=== PATIENT | male | born 1955 | race Two or more races ===

== ENCOUNTER → 2017-10-11 | Outpatient (CLI) | payer BC ==
[~2017-10-11] MED LIST: IOHEXOL 180 MG/ML 10 ML VIAL.; LIDOCAINE 1% PF 2 ML VIAL.; methylPREDNISolone ACETATE 40 MG/ML VIAL.; methylPREDNISolone ACETATE 80 MG/ML VIAL.
== END | disposition home or self-care (01) ==
LOC: PNCL 08:24
DX: M51.16 Intervertebral disc disorders with radiculopathy, lumbar region (principal); M48.061 Spinal stenosis, lumbar region without neurogenic claudication; I10 Essential (primary) hypertension; E11.9 Type 2 diabetes mellitus without complications; Z90.49 Acquired absence of other specified parts of digestive tract; E78.00 Pure hypercholesterolemia, unspecified; Z79.82 Long term (current) use of aspirin; Z79.899 Other long term (current) drug therapy; Z79.84 Long term (current) use of oral hypoglycemic drugs; Z79.4 Long term (current) use of insulin; F17.210 Nicotine dependence, cigarettes, uncomplicated; Z87.19 Personal history of other diseases of the digestive system
CPT/HCPCS: 62323; J1030; J1040; Q9965

== ENCOUNTER → 2017-10-30 | Outpatient (CLI) | payer BC ==
[2016-03-16 13:00] VITALS: BP 107/77
[~2017-10-30] MED LIST changes: +ASPI-630 PO; +ATOR20TA58 PO; +EXEN2PEN SQ; +GEMF600T PO; +INSU100V5 IJ; -IOHEXOL 180 MG/ML 10 ML VIAL.; +IOHEXOL 180 MG/ML 10 ML VIAL. ONE; -LIDOCAINE 1% PF 2 ML VIAL.; +LIDOCAINE 2% PF 2ML VIAL. ONE; +LISI-334 PO; +METF10003 PO; +MULT-18 PO; +OMEG1CAP6 PO; +OMEP20CA9 PO; +SAXA1TBM3 PO; -methylPREDNISolone ACETATE 40 MG/ML VIAL.; +methylPREDNISolone ACETATE 40 MG/ML VIAL. ONE; -methylPREDNISolone ACETATE 80 MG/ML VIAL.; +methylPREDNISolone ACETATE 80 MG/ML VIAL. ONE
--- NOTE | 2017-10-31 00:29 | PAIN ---
DATE OF SERVICE: 10/30/2017 PROGRESS NOTE FOR PAIN CLINIC DIAGNOSES: Lumbar radiculopathy with lumbar degenerative disk disease, lumbar spinal stenosis. HISTORY OF PRESENT ILLNESS: The patient is a 62-year-old male who returns for followup status post lumbar epidural steroid injection x 1. The patient reports about 50% improvement, especially for the first 3 to 4 days, was doing much better, now about 50% overall, with increasing distances walking and doing household activities with much greater ease and comfort, sleeping well at night. The patient reports now the pain is returning in the low back, a little bit more on the left leg, but is intermittent in the left leg, rates it as a 10 on a scale of 10 at its worst, 7 on average, 5 at its least and is a 5 today. The patient reports it is aching, shooting, sometimes sharp and stinging, unbearable at times, mostly with weightbearing, standing and walking. The patient reports it is okay with sitting or lying down, it does not awaken him from sleep. PHYSICAL EXAMINATION: VITAL SIGNS: Today, the patient's blood pressure is 126/78, pulse 99, respirations 20, temperature 98.4 degrees Fahrenheit, weight is 269 pounds. GENERAL: The patient is awake, alert, oriented, appropriate, very pleasant demeanor. HEENT: Head shows normocephalic, atraumatic. Extraocular movements are intact, symmetrical. Oral cavity: Mucous membranes moist and pink. Dentition is intact. NECK: Shows anterior throat supple without palpable lymphadenopathy noted. Swallow reflex symmetrical. CHEST: Shows normal with inspection. Breath sounds clear to auscultation bilaterally. HEART: Shows S1, S2 clear. No murmurs auscultated. ABDOMEN: Soft, nontender, nondistended. No palpable organomegaly. There is no rebound or guarding demonstrated. BACK: Shows spine grossly in the midline, slight flattening of lumbar lordotic curvature. Lumbar paraspinous muscle shows symmetrical on inspection; on palpation shows some moderate tenderness, but only diffusely without abnormalities. EXTREMITIES: Lower extremities show deep tendon reflexes at 2+ in the patellar, 1+ tendo-calcaneus tendons. Motor exam is approximately 4 on a scale of 5 left and 5/5 on the right. . Peripheral pulses are 1+ posterior tibia. No peripheral edema is noted bilaterally. Options were discussed with the patient. The patient's old chart was reviewed as his current medication regimen updated. Current review of systems updated today as well and we will proceed with a second in series of lumbar epidural steroid injection today with fluoroscopic guidance. Risks were again discussed including, but not limited to bleeding, infection, possibility of epidural hematoma, subsequent neurologic compromise, dural puncture, headaches, spinal cord and/or nerve damage, side effects to steroid medication and poor results regarding pain control. The patient understands and wished to proceed. The patient to return to clinic in approximately 2 weeks for followup, was counseled on return appointment, activity level and side effects to be aware of. DIAGNOSES: Lumbar radiculopathy with lumbar degenerative disk disease, lumbar spinal stenosis. PROCEDURE: Lumbar epidural steroid injection, translaminar approach at L4-L5 level using C-arm fluoroscopic guidance under sterile prep and drape using local anesthetic. MEDICATION INJECTED: A total of 120 mg Depo-Medrol plus 10 mL of preservative-free normal saline and 2 mL of Isovue for contrast. CONDITION AT DISCHARGE: Stable. The patient tolerated procedure well, had no complications. DAVIDSON BURR MD DR: TAMARA/skylar JOB#: [id number] / [id number]
== END | disposition home or self-care (01) ==
LOC: PNCL 08:27
PROVIDERS: ATTEND Anesthesiology
DX: M51.16 Intervertebral disc disorders with radiculopathy, lumbar region (principal); M48.061 Spinal stenosis, lumbar region without neurogenic claudication; E78.00 Pure hypercholesterolemia, unspecified; I10 Essential (primary) hypertension; E11.9 Type 2 diabetes mellitus without complications; Z79.82 Long term (current) use of aspirin; Z79.899 Other long term (current) drug therapy; Z79.84 Long term (current) use of oral hypoglycemic drugs; Z79.4 Long term (current) use of insulin; Z90.49 Acquired absence of other specified parts of digestive tract; F17.210 Nicotine dependence, cigarettes, uncomplicated; Z87.19 Personal history of other diseases of the digestive system
CPT/HCPCS: 62323; J1030; J1040; J2001; Q9965

== ENCOUNTER → 2017-11-19 | Outpatient (CLI) | payer BC ==
[2016-03-16 13:00] VITALS: BP 107/77
[~2017-11-19] MED LIST changes: -METF10003 PO; +METF10007 PO
--- NOTE | 2017-11-19 20:03 | PAIN ---
DATE OF SERVICE: 11/19/2017 DIAGNOSIS: Lumbar radiculopathy with lumbar spinal stenosis and lumbar degenerative disk disease. HISTORY OF PRESENT ILLNESS: The patient is a 62-year-old male who returns for followup status post lumbar epidural steroid injections x 2. The patient reports good results, but only lasting about a week or so, about 70% improvement and pain returning in the low back and more on the left than the right lower extremity, mostly in the posterior gluteus, posterior thigh, lateral thigh, anterior thigh. The patient reports it is aching and sharp, sometimes dull, can be shooting and burning as well in the low back, worse with walking, standing and changing positions, better with lying down, does not awaken him from sleep at night and worse with activity. The patient reports it is an 8 on a scale of 10 at its worst, 8 on average, 6 at its least and is an 8 today. The patient reports no new motor or sensory deficits, no new bowel or bladder incontinence or other complaints. He has increased his activity with greater ease and comfort for the first week, but then the pain returns essentially to its baseline. PHYSICAL EXAMINATION: VITAL SIGNS: The patient's blood pressure 125/74, pulse 101, respirations 18, temperature 98.0 degrees Fahrenheit, height is 5 feet 11 inches, weight is 267 pounds. GENERAL: The patient is awake, alert, oriented, appropriate, very pleasant demeanor. HEENT: Head shows normocephalic, atraumatic. Extraocular movements are intact and symmetrical. Oral cavity: Mucous membranes are moist and pink. Dentition is intact. NECK: Shows anterior throat supple without palpable lymphadenopathy noted. Swallow reflex is symmetrical. CHEST: Shows normal on inspection. Breath sounds are clear to auscultation bilaterally. HEART: Shows S1, S2 clear. No murmurs auscultated. ABDOMEN: Soft, nontender, nondistended. No palpable organomegaly is noted. No rebound or guarding demonstrated. BACK: Shows spine grossly in the midline. Normal appearing thoracic kyphosis and some minor flattening of lumbar lordotic curvature. Lumbar paraspinous muscle shows symmetrical on inspection, on palpation has some mild tenderness, but only diffusely without radiation. EXTREMITIES: The patient's lower extremities show deep tendon reflexes at 2+ in the patellar, 1+ tendo calcaneus tendons. Motor exam is approximately 4 on a scale 5 with left dorsiflexion and extension and 5/5 on the right. Peripheral pulses are 1+ posterior tibia. No peripheral edema is noted. Options were discussed with the patient. The patient's old chart was reviewed as his current medication regimen updated. Current review of systems updated today as well. We will proceed with a third in the series of lumbar epidural steroid injection today with fluoroscopic guidance. Risks were again discussed including, but not limited to bleeding, infection, possibility of epidural hematoma, subsequent neurologic compromise, dural puncture, headaches, spinal cord and/or nerve damage, side effects of steroid medication and poor results regarding pain control. The patient understands and wished to proceed. The patient to return to clinic in approximately 2 weeks for followup, was counseled on return appointment, activity level and side effects to be aware of. DIAGNOSIS: Lumbar radiculopathy with lumbar spinal stenosis and lumbar degenerative disk disease. PROCEDURE: Lumbar epidural steroid injection, translaminar approach at L4-L5 level using C-arm fluoroscopic guidance under sterile prep and drape using local anesthetic. MEDICATION INJECTED: A total of 120 mg Depo-Medrol plus 10 mL of preservative-free normal saline and 2 mL of Isovue for contrast. CONDITION AT DISCHARGE: Stable. The patient tolerated the procedure well, had no complications. DAVIDSON BURR MD DR: TAMARA/skylar JOB#: [id number] / [id number]
== END | disposition home or self-care (01) ==
LOC: PNCL 08:26
PROVIDERS: ATTEND Anesthesiology
DX: M51.16 Intervertebral disc disorders with radiculopathy, lumbar region (principal); M48.061 Spinal stenosis, lumbar region without neurogenic claudication
CPT/HCPCS: 62323; J1030; J1040; J2001; Q9965

== ENCOUNTER → 2018-01-07 | Outpatient (CLI) | payer BC ==
[2016-03-16 13:00] VITALS: BP 107/77
[~2018-01-07] MED LIST changes: -IOHEXOL 180 MG/ML 10 ML VIAL. ONE; -LIDOCAINE 2% PF 2ML VIAL. ONE; -methylPREDNISolone ACETATE 40 MG/ML VIAL. ONE; -methylPREDNISolone ACETATE 80 MG/ML VIAL. ONE
--- NOTE | 2018-01-07 21:34 | PAIN ---
DATE OF SERVICE: 01/07/2018 PROGRESS NOTE FOR PAIN CLINIC DIAGNOSES: Lumbar radiculopathy with lumbar degenerative disk disease and lumbar spinal stenosis. HISTORY OF PRESENT ILLNESS: The patient is a 62-year-old male who returns for followup status post lumbar epidural steroid injections x 3. The patient reports initially did fairly well with about a 50% improvement but only lasting for about a week or so. The patient reports his last injection is only about 40%-50% improvement for about 5 days. The patient reports the pain is still in the low back itself into the bilateral lower extremities, mainly in the left side into the posterior lateral gluteus and lateral thighs, sometimes in the anterior thigh and mostly in the back itself. The patient reports it is a 10 on a scale of 10 at its worst, 7 on average, 6 at its least and is aching, sharp, becoming more severe, more unbearable, worse with walking and standing, better with sitting down or lying down, does not awaken him from sleep at night and does not have any exacerbation with rotation of the spine, even with axial loading and extension does not exacerbate the pain neither his forward flexion, right and left lateral rotation. The patient reports no new motor or sensory deficits and no new bowel or bladder incontinence or other complaints. PHYSICAL EXAMINATION: VITAL SIGNS: The patient's blood pressure 117/72, pulse 105, respirations 18, temperature 98.8 degrees Fahrenheit and weight is 266 pounds. GENERAL: The patient is awake, alert, oriented, appropriate and very pleasant demeanor. HEENT: Head is normocephalic and atraumatic. Extraocular movements intact and symmetrical. Oral cavity: Mucous membranes moist and pink. Dentition is intact. NECK: Shows anterior throat supple without palpable lymphadenopathy noted. Swallow reflex is symmetrical. CHEST: Shows normal with inspection. Breath sounds clear to auscultation bilaterally. HEART: Shows S1 and S2 clear. No murmurs auscultated. ABDOMEN: Soft, nontender and nondistended. Obese. No organomegaly is noted. No rebound or guarding demonstrated. BACK: Shows spine grossly in the midline. Normal appearing thoracic kyphosis and slight flattening of lumbar lordotic curvature. Lumbar paraspinous musculature shows symmetrical on inspection. On palpation shows some moderate tenderness diffusely bilaterally but only diffusely without trigger points, without radiation. The patient has good rotational motion of the lumbar spine without significant difficulty, greater than 10 degrees right and left as well as full extension 10 degrees, forward flexion 45 degrees without significant increase in pain. No tenderness over the sacrum or sacroiliac regions. EXTREMITIES: Lower extremities show deep tendon reflexes at 2+ in the patellar, 1+ tendo-calcaneus tendons. Motor exam is strong with approximately 4 on a scale of 5 on the left dorsiflexion, extension and 5/5 on the right. The patient has a negative straight leg raise bilaterally. Peripheral pulses are 1+ posterior tibia. No peripheral edema is noted. Options were discussed with the patient. The patient's old chart was reviewed as well as his current medication regimen updated. Current review of systems updated today as well. We discussed a Neurosurgical evaluation. The patient would like to look into this. He does have an MRI scan from August of this year showing some severe stenosis at the L4-L5 level and feel it would be a good opportunity to obtain a neurosurgical opinion regarding further treatment potential surgical candidacy. The patient understands and agrees. We did discuss potential physical therapies, although he has had these prior to the epidural steroid injections as well as water therapy, which he is interested in but is worried that will be temporary as the physical therapy and the injections and we will have him follow up after neurosurgical evaluation if necessary. DAVIDSON BURR MD DR: TAMARA/skylar JOB#: [id number] / [id number] ASPEN Porras MD
== END | disposition home or self-care (01) ==
LOC: PNCL 14:04
PROVIDERS: ATTEND Anesthesiology
DX: M51.16 Intervertebral disc disorders with radiculopathy, lumbar region (principal); M48.061 Spinal stenosis, lumbar region without neurogenic claudication
CPT/HCPCS: 99212

== ENCOUNTER → 2018-01-29 | Outpatient (CLI) | payer BC ==
[2016-03-16 13:00] VITALS: BP 107/77
[~2018-01-29] MED LIST changes: +APRE30TA2 PO; +DAPA10TA PO; +FERR325T14 PO; +FISH1CAP PO; +METF500T16 PO
[2018-01-29 13:34] LABS: BASO # 0.1 x10^3/uL (0.0-0.2); BASO % 1 % (0-3); EOS # 0.2 x10^3/uL (0.0-0.7); EOS % 2 % (0-3); HEMATOCRIT 46.2 % (39.0-53.0); HEMOGLOBIN 15.7 g/dL (13.0-17.5); LYMPH # 2.1 x10^3/uL (1.0-4.8); LYMPH % 18 % (24-48); MEAN CORPUSCULAR HEMOGLOBIN 32 pg (25-35); MEAN CORPUSCULAR HGB CONC 34 g/dL (31-37); MEAN CORPUSCULAR VOLUME 94 fL (79-100); MONO # 0.8 x10^3/uL (0.0-1.1); MONO % 7 % (0-9); NEUT # 8.5 x10^3uL (1.8-7.7); NEUT % 73 % (31-73); PLATELET COUNT 192 x10^3/uL (140-400); RED BLOOD COUNT 4.93 x10^6/uL (4.30-5.70); RED CELL DISTRIBUTION WIDTH 13.3 % (11.5-14.5); WHITE BLOOD COUNT 11.7 x10^3/uL (4.0-11.0)
--- NOTE | 2018-01-29 13:36 | EKG ---
[facility] [address] [place] [address] Test Date: 2018-01-29 Test Time: 13:44:35 Pat Name: BENITO HOLLOWAY Department: Room: Gender: M [employer] Program Director: : 1955 Requested By: ASPEN CASTORENA Order Number: [id number] Reading MD: Adam Green MD Measurements Intervals [place] Rate: 97 P: -15 NH: 192 QRS: -24 QRSD: 88 T: 5 QT: 326 QTc: 418 Interpretive Statements SINUS RHYTHM LEFTWARD AXIS NON-SPECIFIC ST/T CHANGES Electronically Signed On 01-30-2018 10:44:14 CRIME SCENE PHOTOGRAPHER by Adam Green MD
[2018-01-29 13:47] LABS: ALBUMIN 3.8 g/dL (3.4-5.0); ALBUMIN/GLOBULIN RATIO 1.1 (1.0-1.7); CALCIUM 9.2 mg/dL (8.5-10.1); CREATININE 1.2 mg/dL (0.7-1.3); POTASSIUM 4.4 mmol/L (3.5-5.1); TOTAL PROTEIN 7.2 g/dL (6.4-8.2)
== END | disposition home or self-care (01) ==
LOC: SURGPAT 12:15
PROVIDERS: ATTEND Neurological Surgery
DX: Z01.818 Encounter for other preprocedural examination (principal); M48.061 Spinal stenosis, lumbar region without neurogenic claudication; I10 Essential (primary) hypertension
CPT/HCPCS: 36415; 80053; 85025; 87641; 93005

== ENCOUNTER → 2018-02-03 | Day surgery (SDC) | payer BC ==
[2018-01-29 13:04] VITALS: BP 120/63
--- NOTE | 2018-01-31 12:19 | PREOP HP ---
DATE OF SERVICE: 02/03/2018 HISTORY OF PRESENT ILLNESS: The patient is a pleasant 62-year-old who has mid and lower back pain along with pain, which can radiate into the posterior buttocks and thighs, right greater than left. He notes numbness and weakness in his right thighs. The right side is more involved than the left. The problem started about 18 months ago spontaneously. He says his pain is a 4/10 with sitting and increases to a 10/10 with standing and walking. 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 He had chiropractic treatment, which was not helpful. He has had 2 sets of epidural steroid injections and says that the first set of 3 injections helped him, the second did not. PAST MEDICAL HISTORY: Diabetes. PAST SURGICAL HISTORY: Cholecystectomy, right knee repair. FAMILY HISTORY: Cancer and diabetes. 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 . Exercises weekly. Denies substance abuse. Denies current tobacco use. Drinks alcohol 1 or 2 times per year. Drinks coffee, soda and tea daily. ALLERGIES: No known drug allergies. CURRENT MEDICATIONS: Insulin, Bydureon, Otezla, lisinopril, metformin, omeprazole, atorvastatin, Farxiga, aspirin, fish oil, iron, Advil. REVIEW OF SYSTEMS: A 12-point review of systems was obtained and is noncontributory except for that mentioned above. PHYSICAL EXAMINATION: NEUROSURGERY EXAMINATION: GENERAL APPEARANCE: Alert, pleasant, no acute distress. HEAD: Normocephalic and atraumatic. SKIN: Warm and dry. MUSCULOSKELETAL: Lumbar paraspinal muscle bulk is normal, restricted range of motion of lumbar spine, [id number] tenderness of lower lumbar spine with palpation, normal range of motion of the lower extremities bilaterally. EXTREMITIES: No clubbing, cyanosis or edema. NEUROLOGIC: Alert and oriented x 3, normal recent and remote memory. Strength 5/5 in bilateral lower extremities. Sensory is intact to light touch in bilateral lower extremities. Reflexes were present and symmetric in lower extremities bilaterally, negative straight leg raising bilaterally, normal gait. IMAGING: I reviewed a lumbar MRI scan. On that study, there is severe lumbar spinal stenosis present at L2-L3, L3-L4 and L4-L5. This is due to hypertrophic facet joints combined with shortened pedicles as well as posterior disc bulging. ASSESSMENT/ PLAN: The patient has lumbar spinal stenosis, which extends from L2 -L3 to L4-L5. At this point, I feel the most prudent course would be to perform bilateral lumbar microdecompressive surgery at L3 levels. I did discuss this with him in detail. I discussed the risks of surgery as well as expected postoperative outcome and course. He understands the surgery and is designed to help him, but will probably not relieve all of his symptoms. He would like to proceed with surgery. We will make the arrangements. ASPEN CASTORENA MD DR: LILLY/skylar JOB#: [id number] / [id number] JEAN
[~2018-02-03] VITALS: Ht 177.8 cm; Wt 117.9 kg
[~2018-02-03] MED LIST changes: +BACITRACIN 50,000 UNIT in IV NORMAL SALINE 1000ML BAG 1,000 ML IRR ONE; +BUPIVAC MPF-EPI 0.5%-1:200000 30 ML VIAL. ONE; +GELATIN SPONGE SIZE 100. ONE; +HYDROmorphone 2 MG/ML VIAL IV PRN; +IV RINGERS,LACTATED 1000ML 1,000 ML IV SCH; +KETOROLAC 60 MG/2 ML INJ FOR OR. ONE; +LIDOCAINE 1% PF 2 ML VIAL. ID PRN; +MORPHINE SULFATE 2 MG/ML VIAL. IV PRN; +ONDANSETRON PF 4 MG/2 ML VIAL. IV PRN; +PROCHLORPERAZINE 10 MG/2 ML VIAL. IV PRN; +THROMBIN TOPICAL 20,000 UNIT SPRAY.SYRN KIT TP ONE; +fentaNYL PF VIAL 100 MCG/2 ML VIAL IV PRN
== END | disposition home or self-care (01) ==
LOC: SURG 08:38
PROVIDERS: ATTEND Neurological Surgery
DX: M48.061 Spinal stenosis, lumbar region without neurogenic claudication (principal); Z53.8 Procedure and treatment not carried out for other reasons; E11.9 Type 2 diabetes mellitus without complications; Z90.49 Acquired absence of other specified parts of digestive tract; Z98.890 Other specified postprocedural states; Z83.3 Family history of diabetes mellitus; Z72.89 Other problems related to lifestyle; Z79.899 Other long term (current) drug therapy; Z79.82 Long term (current) use of aspirin; Z79.4 Long term (current) use of insulin; Z79.84 Long term (current) use of oral hypoglycemic drugs
CPT/HCPCS: 82962; J1885; J3490; J7030

== ENCOUNTER → 2018-03-19 | Outpatient (CLI) | payer BC ==
[2016-03-16 13:00] VITALS: BP 107/77
[~2018-03-19] MED LIST changes: -BACITRACIN 50,000 UNIT in IV NORMAL SALINE 1000ML BAG 1,000 ML IRR ONE; -BUPIVAC MPF-EPI 0.5%-1:200000 30 ML VIAL. ONE; -GELATIN SPONGE SIZE 100. ONE; -HYDROmorphone 2 MG/ML VIAL IV PRN; -IV RINGERS,LACTATED 1000ML 1,000 ML IV SCH; -KETOROLAC 60 MG/2 ML INJ FOR OR. ONE; -LIDOCAINE 1% PF 2 ML VIAL. ID PRN; -MORPHINE SULFATE 2 MG/ML VIAL. IV PRN; -ONDANSETRON PF 4 MG/2 ML VIAL. IV PRN; -PROCHLORPERAZINE 10 MG/2 ML VIAL. IV PRN; +SITA1TAB11 PO; -THROMBIN TOPICAL 20,000 UNIT SPRAY.SYRN KIT TP ONE; -fentaNYL PF VIAL 100 MCG/2 ML VIAL IV PRN
[2018-03-19 15:00] LABS: BASO # 0.1 x10^3/uL (0.0-0.2); BASO % 1 % (0-3); EOS # 0.1 x10^3/uL (0.0-0.7); EOS % 1 % (0-3); HEMATOCRIT 44.9 % (39.0-53.0); HEMOGLOBIN 15.6 g/dL (13.0-17.5); LYMPH # 2.4 x10^3/uL (1.0-4.8); LYMPH % 19 % (24-48); MEAN CORPUSCULAR HEMOGLOBIN 32 pg (25-35); MEAN CORPUSCULAR HGB CONC 35 g/dL (31-37); MEAN CORPUSCULAR VOLUME 92 fL (79-100); MONO # 0.9 x10^3/uL (0.0-1.1); MONO % 7 % (0-9); NEUT # 9.6 x10^3uL (1.8-7.7); NEUT % 73 % (31-73); PLATELET COUNT 234 x10^3/uL (140-400); RED BLOOD COUNT 4.86 x10^6/uL (4.30-5.70); RED CELL DISTRIBUTION WIDTH 13.1 % (11.5-14.5); WHITE BLOOD COUNT 13.1 x10^3/uL (4.0-11.0)
[2018-03-19 15:33] LABS: ALBUMIN 3.7 g/dL (3.4-5.0); CALCIUM 9.4 mg/dL (8.5-10.1); GFR 75.2; POTASSIUM 4.3 mmol/L (3.5-5.1); TOTAL BILIRUBIN 0.8 mg/dL (0.2-1.0); TOTAL PROTEIN 7.4 g/dL (6.4-8.2)
[2018-03-20 02:19] LABS: HEMOGLOBIN A1C 9.4 % (4.8-5.6)
--- NOTE | 2018-03-24 14:26 | NUR ---
FAXED CMP,HGBA1C PRE - OP TEST REPORTS DONE 03/19/2018 TO 'S OFFICE 03/20/2018 AT 1022 AND RECEIVED TRANSMITTAL CONFIRMATION AND ALSO CALLED AT 1035 03/19/18 AND NOTIFIED ZO PARIS APRN OF ELEVATED HGBA1C 9.4 AND SHE SAID SHE WILL REVIEW ABOVE REPORTS. CALLED 'S OFFICE AT 1345 03/24/2018 AND TALKED TO ZO PARIS APRN AND SAID THE PATIENT IS OKAY TO GO AHEAD WITH SURGERY.
== END | disposition home or self-care (01) ==
LOC: SURGPAT 14:16
PROVIDERS: ATTEND Neurological Surgery
DX: Z01.818 Encounter for other preprocedural examination (principal); M48.061 Spinal stenosis, lumbar region without neurogenic claudication; E11.9 Type 2 diabetes mellitus without complications
CPT/HCPCS: 36415; 80053; 83036; 85025; 87641

== ENCOUNTER 2018-03-26 09:30 | Observation (INO) | payer BC ==
--- NOTE | 2018-03-25 15:11 | PREOP HP ---
DATE OF SERVICE: 03/26/2018. DATE OF PLANNED SURGERY: 03/26/2018. HISTORY OF PRESENT ILLNESS: The patient is a pleasant 62-year-old, who is having mid and lower back pain along with pain, which can radiate into the posterior buttocks and thighs, greater than on the right side than the left. He notes numbness and weakness in his right thigh. The right side is more involved than the left. The problem started about 18 months ago spontaneously. He says his pain is a 4/10 when sitting, and increases to a 10/10 with standing and walking. 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 He had chiropractic treatment, which was not helpful. He has had two sets of epidural steroid injections and says the first set of three injections helped him, but the second did not. PAST MEDICAL HISTORY: Diabetes. PAST SURGICAL HISTORY: Cholecystectomy and right knee repair. FAMILY HISTORY: Cancer and diabetes. 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 He is . He exercises weekly. He denies substance abuse. He denies current tobacco use. He drinks alcohol, one to two times per year. He drinks coffee, soda, and tea daily. ALLERGIES: No known drug allergies. CURRENT MEDICATIONS: Insulin, Bydureon, Otezla, lisinopril, metformin, omeprazole, atorvastatin, Farxiga, aspirin, fish oil, iron and Advil. REVIEW OF SYSTEMS: A 12-point review of systems was obtained and is noncontributory except for that mentioned above. PHYSICAL EXAMINATION: NEUROSURGERY EXAMINATION: GENERAL APPEARANCE: Alert, pleasant, in no acute distress. HEAD: Normocephalic and atraumatic. SKIN: Warm and dry. MUSCULOSKELETAL: Lumbar paraspinal muscle bulk is normal, restricted range of motion of the lumbar spine, [id number] tenderness of lower lumbar spine with palpation, normal range of motion of the lower extremities bilaterally. EXTREMITIES: No clubbing, cyanosis or edema. NEUROLOGIC: Alert and oriented x3. Normal recent and remote memory. Strength is 5/5 in bilateral lower extremities. Sensory was intact to light touch in bilateral lower extremities. Reflexes were present and symmetric in the lower extremities bilaterally, negative straight leg raising bilaterally, normal gait. IMAGING: I reviewed a lumbar MRI scan. On that study, there is severe lumbar spinal stenosis present at L2-L3, L3-L4 and L4-L5. This is due to hypertrophic facet joints combined with shortened pedicles as well as posterior disk bulging. ASSESSMENT: Spinal stenosis, lumbar region with neurogenic claudication. PLAN: The patient has lumbar spinal stenosis, which extends from L2-L3 to L4-L5. At this point, I feel that the most prudent course would be to perform a bilateral lumbar microdecompressive surgery at all three levels. I did discuss this with him. I discussed the risks of surgery as well as expected postoperative course. He understands that surgery is designed to help him, but will probably not relieve all of his symptoms. He would like to go ahead with surgery. We will make the arrangements. ASPEN CASTORENA MD DR: LILLY/skylar JOB#: [id number] / [id number] JEAN
[~2018-03-26] VITALS: Ht 170.2 cm; Wt 112.5 kg
[2018-03-26] VITALS (9 sets, daily range): BP systolic 110–134; BP diastolic 65–85
[~2018-03-26 09:30] MED LIST changes: +BACITRACIN 50,000 UNIT in IV NORMAL SALINE 1000ML BAG 1,000 ML IRR ONE; +BUPIVAC MPF-EPI 0.5%-1:200000 30 ML VIAL. ONE; +DEXAMETHASONE SOD PHOS 20 MG/5 ML VIAL. ONE; +GELATIN SPONGE SIZE 100. ONE; +HYDROmorphone 2 MG/ML VIAL IV PRN; +IV RINGERS,LACTATED 1000ML 1,000 ML IV SCH; +KETOROLAC 60 MG/2 ML INJ FOR OR. ONE; +LIDOCAINE 1% PF 2 ML VIAL. ID PRN; +LIDOCAINE 2% PF Vial for OR 5 ML VIAL. ONE; +MORPHINE SULFATE 4 MG/ML VIAL. IV PRN; +ONDANSETRON PF 4 MG/2 ML VIAL. IV PRN; +ONDANSETRON PF 4 MG/2 ML VIAL. ONE; +PHENYLEPHRINE in 0.9% NACL PF 1 MG/10 ML SYRINGE. IV ONE; +PROCHLORPERAZINE 10 MG/2 ML VIAL. IV PRN; +PROPOFOL 20 ML IV ONE; +PROPOFOL 50 ML IV ONE; +REMIFENTANIL 2 MG VIAL. IV ONE; +ROCURONIUM 50 MG/5 ML VIAL. ONE; +SUCCINYLCHOLINE 200 MG/10 ML VIAL. ONE; +THROMBIN TOPICAL 20,000 UNIT SPRAY.SYRN KIT TP ONE; +ePHEDrine PF IN SALINE 50 MG/5 ML DISP.SYRIN IV ONE; +fentaNYL PF VIAL 100 MCG/2 ML VIAL IV PRN; +fentaNYL PF VIAL 100 MCG/2 ML VIAL ONE
[2018-03-26] MEDS ORDERED: PROPOFOL 50 ML IV ONE ×3 (13:07→15:36)
[2018-03-26] MEDS ORDERED: PHENYLEPHRINE 10 MG/ML VIAL. ONE (13:14)
[2018-03-26] MEDS ORDERED: REMIFENTANIL 2 MG VIAL. IV ONE (14:27)
[2018-03-26] MEDS ORDERED: THROMBIN TOPICAL 20,000 UNIT SPRAY.SYRN KIT TP ONE ×2 (15:05→16:33)
[2018-03-26] MEDS ORDERED: ceFAZolin SODIUM 1 GM VIAL ONE (16:03)
[2018-03-26] MEDS ORDERED: GELATIN SPONGE SIZE 100. ONE (16:33)
[2018-03-26] MEDS ORDERED: DESFLURANE > 120 MINUTES IH ONE (16:47)
[2018-03-26] MEDS ORDERED: fentaNYL PF VIAL 100 MCG/2 ML VIAL IV PRN (17:15)
[2018-03-26] MEDS ORDERED: ACETAMINOPHEN 325 MG TABLET. PO PRN (17:15)
[2018-03-26] MEDS ORDERED: ONDANSETRON PF 4 MG/2 ML VIAL. IV PRN (17:15)
[2018-03-26] MEDS ORDERED: MAGNESIUM HYDROXIDE 2,400 MG/30 ML ORAL.SUSP. PO PRN (17:15)
[2018-03-26] MEDS ORDERED: HYDROcodone/APAP 7.5/325MG 1 TAB TABLET PO PRN (17:15)
[2018-03-26] MEDS ORDERED: 0.9 % SODIUM CHLORIDE 10 ML DISP.SYRIN. IV PRN (17:15)
[2018-03-26] MEDS ORDERED: CALCIUM CARBONATE 500 MG TAB.CHEW PO PRN (17:15)
[2018-03-26] MEDS ORDERED: MAG HYDROX/ALUMINUM HYD/SIMETH 30 ML ORAL.SUSP PO PRN (17:15)
[2018-03-26] MEDS ORDERED: diphenhydrAMINE HCL 25 MG CAPSULE PO PRN (17:15)
[2018-03-26] MEDS ORDERED: DEXTROSE 50% 25 GM / 50ML DISP.SYRIN. IV PRN ×2 (17:15→23:00)
--- NOTE | 2018-03-26 17:35 | OP ---
DATE OF SURGERY: 03/26/2018 PREOPERATIVE DIAGNOSES: Severe lumbar spinal stenosis with hypertrophic facets as well as posterior disc bulging/herniation L2-L3, L3-L4, L4-L5 with neurogenic claudication. POSTOPERATIVE DIAGNOSES: Severe lumbar spinal stenosis with hypertrophic facets as well as posterior disc bulging/herniation L2-L3, L3-L4, L4-L5 with neurogenic claudication. OPERATION PERFORMED: Bilateral hemilaminotomies and lumbar microdiscectomy L2-L3, L3-L4, L4-L5. The operation was done with EMG monitoring, fluoroscopy, microscopic dissection. SURGEON: Shahab Castorena M.D. HUMAN RESOURCE CONSULTANT: NIGEL Whitt assisted with the surgery. She assisted with the exposure, the multilevel microdecompression and microdiscectomy as well as the closure. OPERATIVE INDICATIONS: The patient is a pleasant 62-year-old man who developed intractable back and bilateral leg pain, first right greater than left and then bilateral. The problem was as neurogenic claudication type problem and severe. I recommended after he failed conservative measures lumbar microdecompressive surgery. I spoke to him about the surgery, the risks, technique and expected postoperative course and he wished to go ahead. DESCRIPTION OF PROCEDURE: Following general endotracheal anesthesia, the patient was positioned in the prone position on the Tomy table. Lumbar region prepped and draped in standard fashion. TANESHA hose and AV impulse boots were applied for DVT prophylaxis. The microscope was draped. Fluoroscopy was draped and brought in the field. Ancef 2 grams was given less than 1 hour prior to initiation of surgery. Using fluoroscopic guidance, a midline incision was made extending from L2 to L5 and significant subcutaneous tissue, reflected the paraspinal muscles to the right side and placed a Palco micro disc retractor. I brought in the microscope and the remainder of the surgery was done using microscopic technique. I burred down a generous hemilaminotomy at L2-L3 and then peeled away the very thickened ligamentum flavum. I worked to the midline and then worked out laterally to the pedicle and removed the very thickened ligamentum flavum. I gently retracted the dura and nerve roots medially. There were a few epidural veins, which I coagulated. Disc was bulging posteriorly. I incised the annulus and I performed discectomy with pituitary and rongeurs. The region was fully and well decompressed. I did use the bipolar cautery as well as bone wax throughout the operation for hemostasis. I then moved down to L3-L4 and performed the identical operation at L3-L4. At this level, again there was posterior disc bulging and I incised the annulus and ligament while gently holding the root medially with a micro nerve root retractor and again performed a discectomy with pituitary and rongeurs. Following full decompression and exploration and ensuring myself there were no retained fragments and the dura and the roots were all free, I also performed a partial foraminotomy. I then moved down to L4-L5 and in the similar fashion performed a wide generous hemilaminotomy. I peeled away thickened ligamentum flavum. I again retracted the root and I again performed a microdiscectomy. I went to the left side and then at L2-L3 after my exposure, I drilled a hemilaminotomy and partial foraminotomy, peeled away the ligamentum flavum. The disc was bulging slightly, but very firm, no discectomy was warranted. I then went down to L3-L4 where there was a significant amount of disc which I decompressed and I incised the annulus and performed a discectomy and fully decompressed this region. I then went to L4-L5 and in the similar fashion there was further disc material and after the wide decompression I performed a microdiscectomy. I irrigated copiously. I did use the bipolar cautery as I mentioned above and bone wax throughout the operation to maintain hemostasis. I did use small amounts of Gelfoam and the operation I felt went very well. I irrigated copiously multiple times throughout the operation and again at the end. I closed the wound in layers with absorbable suture. The skin was closed with 4-0 subcuticular stitch. The operation went very well, I was quite pleased with the surgery. SHAHAB CASTORENA MD DR: LILLY/skylar JOB#: [id number] / [id number] JEAN
[2018-03-26] MEDS ORDERED: INSULIN LISPRO 100 UNIT/ML 3ML VIAL. SQ ONE (18:00)
--- NOTE | 2018-03-26 18:49 | NUR ---
received from recovery; alert to name but take awhile to process questions. states that he needs to go to the bathroom-"cannot use urinal" ambulated to bathroom with assist 2. denies using cane /walker prior to surgery.returns to bed after voiding; unable to measure at this time. dressing to his back is saturated. cleansed with chlor prep then 4 pkg of 4x4's abd then Medipore tape used. steri stripes and glue intact; he has a slight swelling bilateral incisional area. he is rating his pain a "2". at bedside and is feeding him. radius corner machine operator gave him 6 units of insulin for 213.
[2018-03-26] MEDS: HYDROcodone/APAP 7.5/325MG 1 TAB TABLET PO PRN (19:24)
[2018-03-26] MEDS ORDERED: POTASSIUM CL 20MEQ-0.45% NACL 1,000 ML IV SCH (20:00)
[2018-03-26] MEDS ORDERED: NON FORMULARY ITEM (Apremilast (Otezla) 30 MG) PO SCH (21:00)
[2018-03-26] MEDS ORDERED: ATORVASTATIN CALCIUM 20 MG TABLET PO SCH (21:00)
--- NOTE | 2018-03-26 21:00 | NUR ---
Cordelia MANNING returned paged informed of patient elevated blood sugar @ HS as 327 stated to consult hospitalist.
[2018-03-26] MEDS: DOCUSATE SODIUM 100 MG CAPSULE. PO SCH (21:09)
[2018-03-26] MEDS: METHOCARBAMOL 750 MG TABLET PO SCH (21:09)
--- NOTE | 2018-03-26 21:20 | NUR ---
medication reconciliation technician for Dr. Oconnor returned paged informed of consult regarding elevated blood sugar,informed Dr patient on glucophage 1000mg daily,tradjenta 5 mg daily and humalog 13 units TID w meals ,
--- NOTE | 2018-03-26 22:15 | NUR ---
Dr. Knowles here to see patient with order to give humulog 13 units now,and start patient on moderate sliding scale insulin protocol
[2018-03-26] MEDS ORDERED: INSULIN LISPRO 300 UNITS/3 ML INSULN.PEN. SQ ONE (22:30)
--- NOTE | 2018-03-26 22:43 | PDOC2 ---
CONSULT Date of Consult Date of Consult DATE: 03/26/18 TIME: 22:21 Reason for Consult Reason for Consult: hyperglycemia Identification/Chief Complaint Chief Complaint elevated sugars Source Source: Patient History of Present Illness Reason for Visit: 62 [address] old admitted by Dr Banda secondary to lumbar spinal stenosis now s/p lumbar microdecompressive surgery on 03/26/18. Hospitalist called due to elevated sugars. 154-->213-->327. Patient reports DM since 1999 on insulin therapy. currently on the following regimen: metformin 1 gram daily, linagliptin 5 mg daily, insulin lispro 13 units TID and Bydureon 2 mg/pen weekly on Sundays. patient took Bydureon this past Saturday. Has not taken his Diabetes meds today as he has been NPO for his surgery today. Patient received 20 mg IV dexamethasone at 8 am today. Patient reports no complaints. denies chest pain, sob, nausea vomiting diarrhea. at bedside. Past Medical History Past Medical History diabetes, HTN obesity Past Surgical History Past Surgical History Cholecystectomy and right knee repair and lumbar microdiscectomy Family History Family History diabetes Social History No ALCOHOL: none Drugs: None Domestic Violence: Neg Current Medications Current Medications Current Medications Bacitracin 09470 unit/Sodium Chloride 1,000 ml @ 1,000 mls/hr 1X ONCE IRR Last administered on 03/26/18at 12:46; Start 03/26/18 at 06:00; Stop 03/26/18 at 06: 59; Status DC Ondansetron HCl (Zofran) 4 mg PRN Q6HRS PRN IV NAUSEA/VOMITING; Start 03/26/18 at 07:00; Stop 03/26/18 at 19:00; Status DC Fentanyl Citrate (Fentanyl 2ml Vial) 25 mcg PRN Q5MIN PRN IV MILD PAIN; Start 03/26/18 at 07:00; Stop 03/26/18 at 19:00; Status DC Fentanyl Citrate (Fentanyl 2ml Vial) 50 mcg PRN Q5MIN PRN IV MODERATE TO SEVERE PAIN; Start 03/26/18 at 07:00; Stop 03/26/18 at 19:00; Status DC Morphine Sulfate (Morphine Sulfate) 1 mg PRN Q10MIN PRN IV SEVERE PAIN; Start 03/26/18 at 07:00; Stop 03/26/18 at 19:00; Status DC Ringer's Solution 1,000 ml @ 30 mls/hr Q24H IV Last administered on 03/26/18at 07:00; Start 03/26/18 at 07:00; Stop 03/26/18 at 18:59; Status DC Lidocaine HCl (Xylocaine-Mpf 1% 2ml Vial) 2 ml PRN 1X PRN ID IV START; Start at 07:00; Stop 03/26/18 at 19:00; Status DC Hydromorphone HCl (Dilaudid) 0.5 mg PRN Q10MIN PRN IV SEV PAIN, Second choice; Start 03/26/18 at 07:00; Stop 03/26/18 at 19:00; Status DC Prochlorperazine Edisylate (Compazine) 5 mg PACU PRN PRN IV NAUSEA, MRX1; Start 03/26/18 at 07:00; Stop 03/26/18 at 19:00; Status DC Gelatin (Gelfoam Size 100) 1 each STK-MED ONCE .ROUTE Last administered on 03/26at 12:46; Start 03/26/18 at 06:45; Stop 03/26/18 at 06:47; Status DC Bupivacaine HCl/ Epinephrine Bitart (Sensorcain-Mpf Epi 0.5%-1:[id number]) 30 ml STK -MED ONCE .ROUTE Last administered on 03/26/18at 12:46; Start 03/26/18 at 06:45; Stop 03/26/18 at 06:47; Status DC Ketorolac Tromethamine (Toradol For Or Only) 60 mg STK-MED ONCE .ROUTE Last administered on 03/26/18at 12:46; Start 03/26/18 at 06:45; Stop 03/26/18 at 06:47; Status DC Thrombin 20,000 unit STK-MED ONCE TP Last administered on 03/26/18at 12:46; Start 03/26/18 at 06:45; Stop 03/26/18 at 06:47; Status DC Cefazolin Sodium/ Dextrose 50 ml @ 100 mls/hr 1X ONCE IV Last administered on 03/26/18at 12:20; Start 03/26/18 at 08:12; Stop 03/26/18 at 08:41; Status DC Propofol 20 ml @ As Directed STK-MED ONCE IV ; Start 03/26/18 at 08:11; Stop 03/26 at 08:13; Status DC Lidocaine HCl (Lidocaine Pf 2% Vial) 5 ml STK-MED ONCE .ROUTE ; Start 03/26/18 at 08:11; Stop 03/26/18 at 08:13; Status DC Dexamethasone Sodium Phosphate (Decadron) 20 mg STK-MED ONCE .ROUTE ; Start 03/26 at 08:12; Stop 03/26/18 at 08:13; Status DC Ondansetron HCl (Zofran) 4 mg STK-MED ONCE .ROUTE ; Start 03/26/18 at 08:12; Stop 03/26/18 at 08:13; Status DC Ephedrine Sulfate (ePHEDrine PF IN SALINE SYRINGE) 50 mg STK-MED ONCE IV ; Start 03/26/18 at 08:12; Stop 03/26/18 at 08:14; Status DC Phenylephrine HCl (PHENYLEPHRINE in 0.9% NACL PF) 1 mg STK-MED ONCE IV ; Start 03/26/18 at 08:12; Stop 03/26/18 at 08:14; Status DC Rocuronium [place] (Zemuron) 50 mg STK-MED ONCE .ROUTE ; Start 03/26/18 at 08:12 ; Stop 03/26/18 at 08:14; Status DC Succinylcholine Chloride (Anectine) 200 mg STK-MED ONCE .ROUTE ; Start 03/26/18 at 08:13; Stop 03/26/18 at 08:15; Status DC Fentanyl Citrate (Fentanyl 2ml Vial) 100 mcg STK-MED ONCE .ROUTE ; Start at 08:57; Stop 03/26/18 at 08:58; Status DC Remifentanil HCl (Ultiva) 2 mg STK-MED ONCE IV ; Start 03/26/18 at 09:26; Stop at 09:27; Status DC Propofol 50 ml @ As Directed STK-MED ONCE IV ; Start 03/26/18 at 09:26; Stop 03/26 at 09:27; Status DC Propofol 50 ml @ As Directed STK-MED ONCE IV ; Start 03/26/18 at 13:07; Stop 03/26 at 13:08; Status DC Phenylephrine HCl (Surinder-Synephrine Inj) 10 mg STK-MED ONCE .ROUTE ; Start at 13:14; Stop 03/26/18 at 13:15; Status DC Propofol 50 ml @ As Directed STK-MED ONCE IV ; Start 03/26/18 at 14:15; Stop 03/26 at 14:17; Status DC Remifentanil HCl (Ultiva) 2 mg STK-MED ONCE IV ; Start 03/26/18 at 14:27; Stop at 14:29; Status DC Thrombin 20,000 unit STK-MED ONCE TP Last administered on 03/26/18at 15:08; Start 03/26/18 at 15:05; Stop 03/26/18 at 15:07; Status DC Propofol 50 ml @ As Directed STK-MED ONCE IV ; Start 03/26/18 at 15:36; Stop 03/26 at 15:38; Status DC Cefazolin Sodium/ Dextrose 50 ml @ 100 mls/hr 1X ONCE IV Last administered on 03/26/18at 16:15; Start 03/26/18 at 16:15; Stop 03/26/18 at 16:44; Status DC Cefazolin Sodium (Ancef) 1 gm STK-MED ONCE .ROUTE ; Start 03/26/18 at 16:03; Stop 03/26/18 at 16:05; Status DC Gelatin (Gelfoam Size 100) 1 each STK-MED ONCE .ROUTE Last administered on 03/26at 16:36; Start 03/26/18 at 16:33; Stop 03/26/18 at 16:35; Status DC Thrombin 20,000 unit STK-MED ONCE TP Last administered on 03/26/18at 16:36; Start 03/26/18 at 16:33; Stop 03/26/18 at 16:35; Status DC Desflurane (Suprane) 90 ml STK-MED ONCE IH ; Start 03/26/18 at 16:47; Stop at 16:49; Status DC Aspirin (Children'S Aspirin) 81 mg DAILY PO ; Start 03/27/18 at 09:00 Atorvastatin Calcium (Lipitor) 20 mg HS PO Last administered on 03/26/18at 21:09 ; Start 03/26/18 at 21:00 Ferrous Sulfate (Feosol) 325 mg DAILY PO ; Start 03/27/18 at 09:00 Insulin Human Lispro (HumaLOG) 13 units TIDWMEALS SQ ; Start 03/27/18 at 08:00 Lisinopril (Prinivil) 20 mg DAILY PO ; Start 03/27/18 at 09:00 Non-Formulary Medication (Apremilast (Otezla)) 30 mg BID PO ; Start 03/26/18 at 21:00; Status UNV Non-Formulary Medication (Dapagliflozin Propanediol (Farxiga)) 10 mg DAILY PO ; Start 03/27/18 at 09:00; Status UNV Non-Formulary Medication (Exenatide Microspheres (Bydureon Pen)) 2 mg WEEKLY SQ ; Start 04/02/18 at 09:00; Status UNV Fish Oil (Fish Oil) 1,000 mg DAILY PO ; Start 03/27/18 at 09:00 Multivitamins (Thera M Plus) 1 tab DAILY PO ; Start 03/27/18 at 09:00 Pantoprazole Sodium (Protonix) 40 mg DAILYAC PO ; Start 03/27/18 at 07:30 Linagliptin (Tradjenta) 5 mg DAILY PO ; Start 03/27/18 at 09:00 Fentanyl Citrate (Fentanyl 2ml Vial) 50 mcg PRN Q2HR PRN IV PAIN Last administered on 03/26/18at 22:00; Start 03/26/18 at 17:15 Dextrose (Dextrose 50%-Water Syringe) 12.5 gm PRN Q15MIN PRN IV SEE COMMENTS; Start 03/26/18 at 17:15 Acetaminophen (Tylenol) 650 mg PRN Q6HRS PRN PO MILD PAIN / TEMP; Start at 17:15 Al Hydroxide/Mg Hydroxide (Mylanta Plus Xs) 30 ml PRN Q3HRS PRN PO HEARTBURN / GAS; Start 03/26/18 at 17:15 Calcium Carbonate/ Glycine (Tums) 500 mg PRN Q3HRS PRN PO INDIGESTION; Start at 17:15 Diphenhydramine HCl (Benadryl) 25 mg PRN Q6HRS PRN PO ITCHING; Start 03/26/18 at 17:15 Sodium Chloride (Normal Saline Flush) 3 ml QSHIFT PRN IV AFTER MEDS AND BLOOD DRAWS; Start 03/26/18 at 17:15 Potassium Chloride/Sodium Chloride 1,000 ml @ 75 mls/hr [id number] IV Last administered on 03/26/18at 19:25; Start 03/26/18 at 20:00 Methocarbamol (Robaxin) 750 mg TID PO Last administered on 03/26/18at 21:09; Start 03/26/18 at 21:00 Docusate Sodium (Colace) 100 mg BID PO Last administered on 03/26/18at 21:09; Start 03/26/18 at 21:00 Magnesium Hydroxide (Milk Of Magnesia) 2,400 mg PRN Q12HR PRN PO CONSTIPATION; Start 03/26/18 at 17:15 Ondansetron HCl (Zofran) 4 mg PRN Q6HRS PRN IV NAUESA, 1ST CHOICE; Start at 17:15 Acetaminophen/ Hydrocodone Bitart (Lortab 7.5/325) 1 tab PRN Q6HRS PRN PO PAIN ; Start 03/26/18 at 17:15 Acetaminophen/ Hydrocodone Bitart (Lortab 7.5/325) 2 tab PRN Q6HRS PRN PO PAIN Last administered on 03/26/18at 19:24; Start 03/26/18 at 17:15 Metformin HCl (Glucophage) 1,000 mg DAILY PO ; Start 03/27/18 at 09:00 Insulin Human Lispro (HumaLOG VIAL) 6 unit 1X ONCE SQ Last administered on 03/26at 17:56; Start 03/26/18 at 18:00; Stop 03/26/18 at 18:01; Status DC Active Scripts Active Reported Janumet 50-1,000 Mg Tablet (Sitagliptin Phos/Metformin Hcl) 1 Each Tablet 1 Each PO DAILY Otezla (Apremilast) 30 Mg Tablet 30 Mg PO BID Farxiga (Dapagliflozin Propanediol) 10 Mg Tablet 10 Mg PO DAILY Fish Oil 1,200 Mg Fish Oil (Fish Oil/Dha/Epa) 1 Each Capsule 1 Each PO DAILY Ferrous Sulfate 325 Mg Tablet 27 Mg PO DAILY Bydureon Pen (Exenatide Microspheres) 2 Mg/0.65 Ml Pen.injctr 2 Mg SQ WEEKLY Atorvastatin Calcium 20 Mg Tablet 20 Mg PO HS Omeprazole 20 Mg Capsule.dr 1 Cap PO DAILY Humulin R (Insulin Regular, Human) 100 Unit/1 Ml Vial 13 Unit IJ TID Daily Vitamin (Multivitamin) 1 Each Tablet 1 Each PO DAILY Lisinopril 20 Mg Tablet 20 Mg PO DAILY Aspirin 81 Mg Tab.chew 81 Mg PO DAILY Allergies Allergies: Coded Allergies: No Known Drug Allergies (Unverified , 03/26/18) ROS Review of System CONSTITUTIONAL: No fever or chills EYES: No recent changes SKIN: No rash or itching CARDIOVASCULAR: No chest pain, syncope, palpitations, or edema RESPIRATORY: No SOB or cough GASTROINTESTINAL: No nausea, vomiting or abdominal pain NEUROLOGICAL: No headaches or weakness ENDOCRINE: No cold or heat intolerance GENITOURINARY: No urgency or frequency of urination MUSCULOSKELETAL: No back pain or joint pain LYMPHATICS: No enlarged lymph nodes PSYCHIATRIC: No anxiety or depression Physical Exam Physical Exam GENERAL: No apparent distress. Alert and oriented. HEENT: Head normocephalic, atraumatic. NECK: Supple LUNGS: Clear to auscultation. HEART: RRR, S1, S2 present, pulses intact ABDOMEN: Soft, positive bowel sounds. EXTREMITIES: No cyanosis or edema. NEUROLOGIC: Normal speech, normal tone PSYCHIATRIC: Normal affect, normal mood. SKIN: No ulceration. Vitals VITALS Vital Signs Date Time Temp Pulse Resp B/P (MAP) Pulse Ox O2 Delivery O2 Flow Rate FiO2 03/26/18 22:00 20 95 Room Air 03/26/18 21:00 105 116/72 (87) 03/26/18 20:00 99.4 99.4 03/26/18 18:34 2.0 Labs Labs Laboratory Tests Test 03/26/18 09:55 03/26/18 17:19 03/26/18 20:48 Glucose (Fingerstick) 154 mg/dL (70-99) 213 mg/dL (70-99) 327 mg/dL (70-99) Laboratory Tests Test 03/26/18 09:55 03/26/18 17:19 03/26/18 20:48 Glucose (Fingerstick) 154 mg/dL (70-99) 213 mg/dL (70-99) 327 mg/dL (70-99) Assessment/Plan Assessment/Plan ASSESSMENT DM-2, without complications with acute hyperglycemia in the setting of IV steroids HTN HLD Morbid Obesity PLAN - recommend to give his 13 units of pre-meal time insulin now (did not get before his dinner) - place on moderate dose SSI - defer initiating him on long acting insulin tonight as i suspect his sugars should improve since we started his home regimen this evening - acute hyperglycemia likely also exacerbated by IV steroids given this AM. - can reassess in AM tomorrow to perhaps add long acting insulin but would favor deferring to his outpatient doctor - a1c of 9.4% on 03/19/18 - check AM BMP - BP meds resumed. - ADA diet--ordered - thank you for consult. will follow along. REGI MARINELLI MD Mar 26, 2018 22:43
[2018-03-27 02:20] VITALS: BP 124/74
[2018-03-27] MEDS: HYDROcodone/APAP 7.5/325MG 1 TAB TABLET PO PRN ×2 (05:43→12:59)
[2018-03-27 06:20] VITALS: BP 126/76
[2018-03-27 07:28] LABS: CALCIUM 8.5 mg/dL (8.5-10.1); CREATININE 1.1 mg/dL (0.7-1.3); GFR 67.4; POTASSIUM 4.6 mmol/L (3.5-5.1)
[2018-03-27] MEDS ORDERED: PANTOPRAZOLE 40 MG TABLET.DR. PO SCH (07:30)
[2018-03-27] MEDS ORDERED: INSULIN LISPRO 300 UNITS/3 ML INSULN.PEN. SQ SCH ×2 (08:00→12:00)
[2018-03-27] MEDS: DOCUSATE SODIUM 100 MG CAPSULE. PO SCH (08:26)
[2018-03-27] MEDS: METHOCARBAMOL 750 MG TABLET PO SCH ×2 (08:26→12:59)
[2018-03-27] MEDS: INSULIN LISPRO 300 UNITS/3 ML INSULN.PEN. SQ SCH ×2 (08:37→11:35)
[2018-03-27 08:38] VITALS: BP 131/78
[2018-03-27] MEDS ORDERED: metFORMIN 500 MG TABLET PO SCH (09:00)
[2018-03-27] MEDS ORDERED: LINAGLIPTIN 5 MG TABLET PO SCH (09:00)
[2018-03-27] MEDS ORDERED: LISINOPRIL 20 MG TABLET PO SCH (09:00)
[2018-03-27] MEDS ORDERED: OMEGA-3 FATTY ACIDS/FISH OIL 1,000 MG CAPSULE. PO SCH (09:00)
[2018-03-27] MEDS ORDERED: ASPIRIN CHEWABLE 81 MG TABLET. PO SCH (09:00)
[2018-03-27] MEDS ORDERED: NON FORMULARY ITEM (Dapagliflozin Propanediol (Farxiga) 10 MG) PO SCH (09:00)
[2018-03-27] MEDS ORDERED: MULTIVITAMIN with MINERAL TABLET. PO SCH (09:00)
[2018-03-27] MEDS ORDERED: FERROUS SULFATE 325 MG TABLET. PO SCH (09:00)
[2018-03-27] MEDS ORDERED: DEXTROSE 50% 25 GM / 50ML DISP.SYRIN. IV PRN (09:30)
--- NOTE | 2018-03-27 09:50 | PDOC ---
PROGRESS NOTES Chief Complaint Chief Complaint DM-2, without complications with acute hyperglycemia in the setting of IV steroids and sx HTN HLD Morbid Obesity s/post surgery for lumbar stenosis with radiculopathy-by neurosurgery History of Present Illness History of Present Illness Sugars much better, 180s after colleague consult/intervention Patient has no complaints Plan for discharge by primary service today He is very compliant with his dm regimen; follows closely with outpatient M.D. Plan: I have no objections to DC today He will go back to his home regimen upon DC Thanks for consulting us dw and pt and RN Mitul Vitals Vitals Vital Signs Date Time Temp Pulse Resp B/P (MAP) Pulse Ox O2 Delivery O2 Flow Rate FiO2 03/27/18 08:38 99 131/78 (95) 03/27/18 06:56 18 96 Nasal Cannula 2.0 03/27/18 06:20 98.4 98.4 Physical Exam General: Alert, Oriented X3, Cooperative, No acute distress Heart: Regular rate, Normal S1, Normal S2, No murmurs Lungs: Clear Abdomen: Normal bowel sounds, Soft, No tenderness Extremities: No clubbing, No cyanosis, No edema Skin: No rashes, No breakdown, No significant lesion Labs LABS Laboratory Tests Test 03/26/18 09:55 03/26/18 17:19 03/26/18 20:48 03/27/18 06:17 Glucose (Fingerstick) 154 mg/dL (70-99) 213 mg/dL (70-99) 327 mg/dL (70-99) 187 mg/dL (70-99) Sodium Level 136 mmol/L (136-145) Potassium Level 4.6 mmol/L (3.5-5.1) Chloride Level 99 mmol/L (98-107) Carbon Dioxide Level 26 mmol/L (21-32) Anion Gap 11 (6-14) Blood Urea Nitrogen 20 mg/dL (8-26) Creatinine 1.1 mg/dL (0.7-1.3) Estimated GFR (Cockcroft-Gault) 67.4 Glucose Level 199 mg/dL (70-99) Calcium Level 8.5 mg/dL (8.5-10.1) Review of Systems Review of Systems A 14 point ROS was completed with the following noted as positive: Other systems reviewed and negative. \CONSTITUTIONAL: No fever or chills EYES: No recent changes SKIN: No rash or itching CARDIOVASCULAR: No chest pain, syncope, palpitations, or edema RESPIRATORY: No SOB or cough GASTROINTESTINAL: No nausea, vomiting or abdominal pain NEUROLOGICAL: No headaches or weakness ENDOCRINE: No cold or heat intolerance GENITOURINARY: No urgency or frequency of urination MUSCULOSKELETAL: No back pain or joint pain LYMPHATICS: No enlarged lymph nodes PSYCHIATRIC: No anxiety or depression Comment Review of Relevant I have reviewed the following items zoran (where applicable) has been applied. Labs Laboratory Tests Test 03/26/18 09:55 03/26/18 17:19 03/26/18 20:48 03/27/18 06:17 Glucose (Fingerstick) 154 mg/dL (70-99) 213 mg/dL (70-99) 327 mg/dL (70-99) 187 mg/dL (70-99) Sodium Level 136 mmol/L (136-145) Potassium Level 4.6 mmol/L (3.5-5.1) Chloride Level 99 mmol/L (98-107) Carbon Dioxide Level 26 mmol/L (21-32) Anion Gap 11 (6-14) Blood Urea Nitrogen 20 mg/dL (8-26) Creatinine 1.1 mg/dL (0.7-1.3) Estimated GFR (Cockcroft-Gault) 67.4 Glucose Level 199 mg/dL (70-99) Calcium Level 8.5 mg/dL (8.5-10.1) Laboratory Tests Test 03/26/18 09:55 03/26/18 17:19 03/26/18 20:48 03/27/18 06:17 Glucose (Fingerstick) 154 mg/dL (70-99) 213 mg/dL (70-99) 327 mg/dL (70-99) 187 mg/dL (70-99) Sodium Level 136 mmol/L (136-145) Potassium Level 4.6 mmol/L (3.5-5.1) Chloride Level 99 mmol/L (98-107) Carbon Dioxide Level 26 mmol/L (21-32) Anion Gap 11 (6-14) Blood Urea Nitrogen 20 mg/dL (8-26) Creatinine 1.1 mg/dL (0.7-1.3) Estimated GFR (Cockcroft-Gault) 67.4 Glucose Level 199 mg/dL (70-99) Calcium Level 8.5 mg/dL (8.5-10.1) Medications Current Medications Bacitracin 81498 unit/Sodium Chloride 1,000 ml @ 1,000 mls/hr 1X ONCE IRR Last administered on 03/26/18at 12:46; Start 03/26/18 at 06:00; Stop 03/26/18 at 06: 59; Status DC Ondansetron HCl (Zofran) 4 mg PRN Q6HRS PRN IV NAUSEA/VOMITING; Start 03/26/18 at 07:00; Stop 03/26/18 at 19:00; Status DC Fentanyl Citrate (Fentanyl 2ml Vial) 25 mcg PRN Q5MIN PRN IV MILD PAIN; Start 03/26/18 at 07:00; Stop 03/26/18 at 19:00; Status DC Fentanyl Citrate (Fentanyl 2ml Vial) 50 mcg PRN Q5MIN PRN IV MODERATE TO SEVERE PAIN; Start 03/26/18 at 07:00; Stop 03/26/18 at 19:00; Status DC Morphine Sulfate (Morphine Sulfate) 1 mg PRN Q10MIN PRN IV SEVERE PAIN; Start 03/26/18 at 07:00; Stop 03/26/18 at 19:00; Status DC Ringer's Solution 1,000 ml @ 30 mls/hr Q24H IV Last administered on 03/26/18at 07:00; Start 03/26/18 at 07:00; Stop 03/26/18 at 18:59; Status DC Lidocaine HCl (Xylocaine-Mpf 1% 2ml Vial) 2 ml PRN 1X PRN ID IV START; Start at 07:00; Stop 03/26/18 at 19:00; Status DC Hydromorphone HCl (Dilaudid) 0.5 mg PRN Q10MIN PRN IV SEV PAIN, Second choice; Start 03/26/18 at 07:00; Stop 03/26/18 at 19:00; Status DC Prochlorperazine Edisylate (Compazine) 5 mg PACU PRN PRN IV NAUSEA, MRX1; Start 03/26/18 at 07:00; Stop 03/26/18 at 19:00; Status DC Gelatin (Gelfoam Size 100) 1 each STK-MED ONCE .ROUTE Last administered on 03/26at 12:46; Start 03/26/18 at 06:45; Stop 03/26/18 at 06:47; Status DC Bupivacaine HCl/ Epinephrine Bitart (Sensorcain-Mpf Epi 0.5%-1:230518) 30 ml STK -MED ONCE .ROUTE Last administered on 03/26/18at 12:46; Start 03/26/18 at 06:45; Stop 03/26/18 at 06:47; Status DC Ketorolac Tromethamine (Toradol For Or Only) 60 mg STK-MED ONCE .ROUTE Last administered on 03/26/18at 12:46; Start 03/26/18 at 06:45; Stop 03/26/18 at 06:47; Status DC Thrombin 20,000 unit STK-MED ONCE TP Last administered on 03/26/18at 12:46; Start 03/26/18 at 06:45; Stop 03/26/18 at 06:47; Status DC Cefazolin Sodium/ Dextrose 50 ml @ 100 mls/hr 1X ONCE IV Last administered on 03/26/18at 12:20; Start 03/26/18 at 08:12; Stop 03/26/18 at 08:41; Status DC Propofol 20 ml @ As Directed STK-MED ONCE IV ; Start 03/26/18 at 08:11; Stop 03/26 at 08:13; Status DC Lidocaine HCl (Lidocaine Pf 2% Vial) 5 ml STK-MED ONCE .ROUTE ; Start 03/26/18 at 08:11; Stop 03/26/18 at 08:13; Status DC Dexamethasone Sodium Phosphate (Decadron) 20 mg STK-MED ONCE .ROUTE ; Start 03/26 at 08:12; Stop 03/26/18 at 08:13; Status DC Ondansetron HCl (Zofran) 4 mg STK-MED ONCE .ROUTE ; Start 03/26/18 at 08:12; Stop 03/26/18 at 08:13; Status DC Ephedrine Sulfate (ePHEDrine PF IN SALINE SYRINGE) 50 mg STK-MED ONCE IV ; Start 03/26/18 at 08:12; Stop 03/26/18 at 08:14; Status DC Phenylephrine HCl (PHENYLEPHRINE in 0.9% NACL PF) 1 mg STK-MED ONCE IV ; Start 03/26/18 at 08:12; Stop 03/26/18 at 08:14; Status DC Rocuronium [place] (Zemuron) 50 mg STK-MED ONCE .ROUTE ; Start 03/26/18 at 08:12 ; Stop 03/26/18 at 08:14; Status DC Succinylcholine Chloride (Anectine) 200 mg STK-MED ONCE .ROUTE ; Start 03/26/18 at 08:13; Stop 03/26/18 at 08:15; Status DC Fentanyl Citrate (Fentanyl 2ml Vial) 100 mcg STK-MED ONCE .ROUTE ; Start at 08:57; Stop 03/26/18 at 08:58; Status DC Remifentanil HCl (Ultiva) 2 mg STK-MED ONCE IV ; Start 03/26/18 at 09:26; Stop at 09:27; Status DC Propofol 50 ml @ As Directed STK-MED ONCE IV ; Start 03/26/18 at 09:26; Stop 03/26 at 09:27; Status DC Propofol 50 ml @ As Directed STK-MED ONCE IV ; Start 03/26/18 at 13:07; Stop 03/26 at 13:08; Status DC Phenylephrine HCl (Surinder-Synephrine Inj) 10 mg STK-MED ONCE .ROUTE ; Start at 13:14; Stop 03/26/18 at 13:15; Status DC Propofol 50 ml @ As Directed STK-MED ONCE IV ; Start 03/26/18 at 14:15; Stop 03/26 at 14:17; Status DC Remifentanil HCl (Ultiva) 2 mg STK-MED ONCE IV ; Start 03/26/18 at 14:27; Stop at 14:29; Status DC Thrombin 20,000 unit STK-MED ONCE TP Last administered on 03/26/18at 15:08; Start 03/26/18 at 15:05; Stop 03/26/18 at 15:07; Status DC Propofol 50 ml @ As Directed STK-MED ONCE IV ; Start 03/26/18 at 15:36; Stop 03/26 at 15:38; Status DC Cefazolin Sodium/ Dextrose 50 ml @ 100 mls/hr 1X ONCE IV Last administered on 03/26/18at 16:15; Start 03/26/18 at 16:15; Stop 03/26/18 at 16:44; Status DC Cefazolin Sodium (Ancef) 1 gm STK-MED ONCE .ROUTE ; Start 03/26/18 at 16:03; Stop 03/26/18 at 16:05; Status DC Gelatin (Gelfoam Size 100) 1 each STK-MED ONCE .ROUTE Last administered on 03/26 16:36; Start 03/26/18 at 16:33; Stop 03/26/18 at 16:35; Status DC Thrombin 20,000 unit STK-MED ONCE TP Last administered on 03/26/18at 16:36; Start 03/26/18 at 16:33; Stop 03/26/18 at 16:35; Status DC Desflurane (Suprane) 90 ml STK-MED ONCE IH ; Start 03/26/18 at 16:47; Stop at 16:49; Status DC Aspirin (Children'S Aspirin) 81 mg DAILY PO Last administered on 03/27/18at 08: 27; Start 03/27/18 at 09:00 Atorvastatin Calcium (Lipitor) 20 mg HS PO Last administered on 03/26/18at 21:09 ; Start 03/26/18 at 21:00 Ferrous Sulfate (Feosol) 325 mg DAILY PO Last administered on 03/27/18 08:27; Start 03/27/18 at 09:00 Insulin Human Lispro (HumaLOG) 13 units TIDWMEALS SQ Last administered on at 08:37; Start 03/27/18 at 08:00 Lisinopril (Prinivil) 20 mg DAILY PO Last administered on 03/27/18at 08:28; Start 03/27/18 at 09:00 Non-Formulary Medication (Apremilast (Otezla)) 30 mg BID PO ; Start 03/26/18 at 21:00; Status UNV Non-Formulary Medication (Dapagliflozin Propanediol (Farxiga)) 10 mg DAILY PO ; Start 03/27/18 at 09:00; Status UNV Non-Formulary Medication (Exenatide Microspheres (Bydureon Pen)) 2 mg WEEKLY SQ ; Start 04/02/18 at 09:00; Status UNV Fish Oil (Fish Oil) 1,000 mg DAILY PO Last administered on 03/27/18 08:26; Start 03/27/18 at 09:00 Multivitamins (Thera M Plus) 1 tab DAILY PO Last administered on 03/27/18 08: 27; Start 03/27/18 at 09:00 Pantoprazole Sodium (Protonix) 40 mg DAILYAC PO Last administered on 03/27/18at 07:38; Start 03/27/18 at 07:30 Linagliptin (Tradjenta) 5 mg DAILY PO Last administered on 03/27/18 08:26; Start 03/27/18 at 09:00 Fentanyl Citrate (Fentanyl 2ml Vial) 50 mcg PRN Q2HR PRN IV PAIN Last administered on 03/26/18at 22:00; Start 03/26/18 at 17:15 Dextrose (Dextrose 50%-Water Syringe) 12.5 gm PRN Q15MIN PRN IV SEE COMMENTS; Start 03/26/18 at 17:15; Stop 03/26/18 at 22:50; Status DC Acetaminophen (Tylenol) 650 mg PRN Q6HRS PRN PO MILD PAIN / TEMP; Start at 17:15 Al Hydroxide/Mg Hydroxide (Mylanta Plus Xs) 30 ml PRN Q3HRS PRN PO HEARTBURN / GAS; Start 03/26/18 at 17:15 Calcium Carbonate/ Glycine (Tums) 500 mg PRN Q3HRS PRN PO INDIGESTION; Start at 17:15 Diphenhydramine HCl (Benadryl) 25 mg PRN Q6HRS PRN PO ITCHING; Start 03/26/18 at 17:15 Sodium Chloride (Normal Saline Flush) 3 ml QSHIFT PRN IV AFTER MEDS AND BLOOD DRAWS; Start 03/26/18 at 17:15 Potassium Chloride/Sodium Chloride 1,000 ml @ 75 mls/hr [id number] IV Last administered on 03/26/18at 19:25; Start 03/26/18 at 20:00; Stop 03/27/18 at 07:01; Status DC Methocarbamol (Robaxin) 750 mg TID PO Last administered on 03/27/18 08:26; Start 03/26/18 at 21:00 Docusate Sodium (Colace) 100 mg BID PO Last administered on 03/27/18at 08:26; Start 03/26/18 at 21:00 Magnesium Hydroxide (Milk Of Magnesia) 2,400 mg PRN Q12HR PRN PO CONSTIPATION; Start 03/26/18 at 17:15 Ondansetron HCl (Zofran) 4 mg PRN Q6HRS PRN IV NAUESA, 1ST CHOICE; Start at 17:15 Acetaminophen/ Hydrocodone Bitart (Lortab 7.5/325) 1 tab PRN Q6HRS PRN PO PAIN ; Start 03/26/18 at 17:15 Acetaminophen/ Hydrocodone Bitart (Lortab 7.5/325) 2 tab PRN Q6HRS PRN PO PAIN Last administered on 03/27/18at 05:43; Start 03/26/18 at 17:15 Metformin HCl (Glucophage) 1,000 mg DAILY PO Last administered on 03/27/18at 08: 27; Start 03/27/18 at 09:00 Insulin Human Lispro (HumaLOG VIAL) 6 unit 1X ONCE SQ Last administered on 03/26at 17:56; Start 03/26/18 at 18:00; Stop 03/26/18 at 18:01; Status DC Insulin Human Lispro (HumaLOG) 13 units 1X ONCE SQ Last administered on at 22:30; Start 03/26/18 at 22:30; Stop 03/26/18 at 22:31; Status DC Insulin Human Lispro (HumaLOG) 0-7 UNITS TIDWMEALS SQ Last administered on 03/27at 08:38; Start 03/27/18 at 08:00; Stop 03/27/18 at 09:20; Status DC Dextrose (Dextrose 50%-Water Syringe) 12.5 gm PRN Q15MIN PRN IV SEE COMMENTS; Start 03/26/18 at 23:00 Insulin Human Lispro (HumaLOG) 0-9 UNITS TIDWMEALS SQ ; Start 03/27/18 at 12:00 Dextrose (Dextrose 50%-Water Syringe) 12.5 gm PRN Q15MIN PRN IV SEE COMMENTS; Start 03/27/18 at 09:30 Active Scripts Active Reported Janumet 50-1,000 Mg Tablet (Sitagliptin Phos/Metformin Hcl) 1 Each Tablet 1 Each PO DAILY Otezla (Apremilast) 30 Mg Tablet 30 Mg PO BID Farxiga (Dapagliflozin Propanediol) 10 Mg Tablet 10 Mg PO DAILY Fish Oil 1,200 Mg Fish Oil (Fish Oil/Dha/Epa) 1 Each Capsule 1 Each PO DAILY Ferrous Sulfate 325 Mg Tablet 27 Mg PO DAILY Bydureon Pen (Exenatide Microspheres) 2 Mg/0.65 Ml Pen.injctr 2 Mg SQ WEEKLY Atorvastatin Calcium 20 Mg Tablet 20 Mg PO HS Omeprazole 20 Mg Capsule. 1 Cap PO DAILY Humulin R (Insulin Regular, Human) 100 Unit/1 Ml Vial 13 Unit IJ TID Daily Vitamin (Multivitamin) 1 Each Tablet 1 Each PO DAILY Lisinopril 20 Mg Tablet 20 Mg PO DAILY Aspirin 81 Mg Tab.chew 81 Mg PO DAILY Vitals/I & O Vital Sign - Last 24 Hours 03/26/18 03/26/18 03/26/18 03/26/18 10:02 10:05 17:15 17:15 Temp 97.2 97.2 98.4 97.2 97.2 98.4 Pulse 98 98 100 Resp 20 20 14 B/P (MAP) 135/85 140/80 Pulse Ox 100 100 99 O2 Delivery Room Air Room Air Room Air O2 Flow Rate 8 03/26/18 03/26/18 03/26/18 03/26/18 17:31 17:46 18:05 18:20 Temp 98.4 98.4 98.7 98.4 98.4 98.7 Pulse 100 106 105 109 Resp 10 10 16 20 B/P (MAP) 151/83 131/77 134/85 (101) 117/66 (83) Pulse Ox 95 99 O2 Delivery Room Air Nasal Cannula Nasal Cannula Room Air O2 Flow Rate 2 03/26/18 03/26/18 03/26/18 03/26/18 18:34 18:45 19:00 19:24 Pulse 109 98 Resp 16 20 20 B/P (MAP) 110/65 (80) 117/68 (84) Pulse Ox 93 95 96 O2 Delivery Room Air Room Air Room Air Room Air O2 Flow Rate 2.0 03/26/18 03/26/18 03/26/18 03/26/18 19:30 20:00 20:00 21:00 Temp 99.4 99.4 Pulse 112 110 105 Resp 20 20 20 B/P (MAP) 131/75 (93) 110/69 (83) 116/72 (87) Pulse Ox 95 96 95 O2 Delivery Room Air Room Air Room Air Room Air 03/26/18 03/26/18 03/26/18 03/26/18 22:00 22:00 22:53 23:00 Temp 97.8 98.8 97.8 98.8 Pulse 100 98 Resp 20 20 20 18 B/P (MAP) 114/75 (88) 111/68 (82) Pulse Ox 95 96 95 94 O2 Delivery Room Air Room Air Room Air Nasal Cannula O2 Flow Rate 2.0 2.0 03/27/18 03/27/18 03/27/18 03/27/18 02:20 05:43 06:20 06:56 Temp 98.0 98.4 98.0 98.4 Pulse 91 96 Resp 20 20 20 18 B/P (MAP) 124/74 (91) 126/76 (93) Pulse Ox 97 98 98 96 O2 Delivery Nasal Cannula Nasal Cannula Nasal Cannula Nasal Cannula O2 Flow Rate 2.0 2.0 2.0 2.0 03/27/18 03/27/18 08:28 08:38 Pulse 99 99 B/P (MAP) 131/78 131/78 (95) Intake and Output 03/26/18 03/26/18 03/27/18 15:01 23:01 07:01 Intake Total 50 ml 1850 ml 500 ml Output Total 150 ml 1200 ml Balance 50 ml 1700 ml -700 ml DAVID RICHARDSON MD Mar 27, 2018 09:50
[2018-03-27 11:20] VITALS: BP 98/65
--- NOTE | 2018-03-27 12:06 | DISCH ---
DISCHARGE INSTRUCTIONS Condition on Discharge Condition on Discharge: Stable Activity After Discharge Activity Instructions for Disc: Activity as tolerated, Avoid exertion Other activity instructions: no driving for a week Bathing Instructions: Shower-keep dressing dry Lifting Instructions after Dis: No heavy lifting, No pulling or pushing, Do not lift >10 pounds Diet after Discharge Additional Diet Restrictions: resume home diet Wound Incision Care Wound/Incision Care: Ice to area for comfort Other wound/incision instructi: may remove dressing in 48 hours if dry then may shower, no soaking Contacting the DRIsaiah after DC Call your doctor for: Concerns you may have Follow-Up Follow up with: Dr. Chang's nurse in 2 weeks [phone] Follow Up With: Dr. Alcocer regarding blodd sugars Treatment/Equipment after DC Adaptive Equipment Issued: ASPEN Goodwin MD Mar 27, 2018 12:06
[2018-03-27] MEDS ORDERED: DOCU-109 PO (12:10)
[2018-03-27] MEDS ORDERED: HYDR-2765 PO (12:10)
[2018-03-27] MEDS ORDERED: METH750T2 PO (12:10)
--- NOTE | 2018-03-27 12:41 | NUR ---
c/o feeling funny, "check my bloodsugar", fsbs 333 this reading after completed full meal & surgical supplement
--- NOTE | 2018-03-27 13:29 | NUR ---
Discharged to home per w/c accompanied by spouse, see instruction sheet for details, dressing supplies & ice pack sent with patient
--- NOTE | 2018-03-28 16:09 | PATHOLOGY ---
[facility] Accession Number: [id number] . 01 Material submitted: . LUMBAR DECOMPRESSION AND DISC . 01 Clinical history: . Lumbar stenosis . 02 Diagnosis: "#1 lumbar deep compression and disc", removal: - Fragments of fibrocartilage with focal degenerative changes. - Fragments of unremarkable bone and skeletal muscle. . (SKM:at;03/28/2018) QTA/03/28/2018 . 02 Electronically signed: . Benedict Busch MD, Pathologist NPI- [id number] . 01 Gross description: . Received in formalin labeled "Lenin White, lumbar decompression and disc," are several pieces of glistening, fibrous tissue measuring 5.5 x 3.0 x 2.9 cm in aggregate dimensions, containing small fragments of possible bone. The tissue submitted representatively in cassette A1, following decalcification. (TSD; 03/27/2018) TOB/TOB . 02 Pathologist provided ICD-10: M51.36 . 02 CPT . 526466, 631402 Specimen Comment: A courtesy copy of this report has been sent to Specimen Comment: [phone], . Specimen Comment: Report sent to / DR YI Performed at: 01 [facility] [address], [place] [id number] MD Rahul Colunga MD Phone: [phone] Performed at: 02 [facility] [address] [place], [place] [id number] MD Benedict Ha MD Phone: [phone]
[2018-04-02] MEDS ORDERED: NON FORMULARY ITEM (Exenatide Microspheres (Bydureon Pen) 2 MG) SQ SCH (09:00)
== END 2018-03-27 13:32 | disposition home or self-care (01) ==
LOC: SURG 09:30 → 4 SOUTHEST 17:06
PROVIDERS: ADMIT Neurological Surgery; ATTEND Neurological Surgery
DX: M48.062 Spinal stenosis, lumbar region with neurogenic claudication (principal); E11.65 Type 2 diabetes mellitus with hyperglycemia; E78.5 Hyperlipidemia, unspecified; E66.01 Morbid (severe) obesity due to excess calories; I15.8 Other secondary hypertension; Z79.4 Long term (current) use of insulin; Z83.3 Family history of diabetes mellitus
CPT/HCPCS: 36415; 63047; 63048; 76000; 80048; 82962; 96361; 96372; 96374; 97116; 97162; 97530; A7015; G0378; G0379; G8978; G8979; G8980; J0330; J0690; J1100; J1815; J1885; J2001; J2370; J2405; J2704; J3010; J3490; J7030; J7120; J0696

== ENCOUNTER 2018-12-19 19:34 | Emergency (ER) | payer BC ==
[~2018-12-19] VITALS: Ht 172.7 cm; Wt 112.5 kg
[~2018-12-19 19:34] MED LIST changes: -BACITRACIN 50,000 UNIT in IV NORMAL SALINE 1000ML BAG 1,000 ML IRR ONE; -BUPIVAC MPF-EPI 0.5%-1:200000 30 ML VIAL. ONE; -DEXAMETHASONE SOD PHOS 20 MG/5 ML VIAL. ONE; +DOCU-109 PO; -GELATIN SPONGE SIZE 100. ONE; +HYDR-2765 PO; -HYDROmorphone 2 MG/ML VIAL IV PRN; -IV RINGERS,LACTATED 1000ML 1,000 ML IV SCH; -KETOROLAC 60 MG/2 ML INJ FOR OR. ONE; -LIDOCAINE 1% PF 2 ML VIAL. ID PRN; -LIDOCAINE 2% PF Vial for OR 5 ML VIAL. ONE; +METH750T2 PO; -MORPHINE SULFATE 4 MG/ML VIAL. IV PRN; +OMEP20CA10 PO; -OMEP20CA9 PO; -ONDANSETRON PF 4 MG/2 ML VIAL. IV PRN; -ONDANSETRON PF 4 MG/2 ML VIAL. ONE; -PHENYLEPHRINE in 0.9% NACL PF 1 MG/10 ML SYRINGE. IV ONE; -PROCHLORPERAZINE 10 MG/2 ML VIAL. IV PRN; -PROPOFOL 20 ML IV ONE; -PROPOFOL 50 ML IV ONE; -REMIFENTANIL 2 MG VIAL. IV ONE; -ROCURONIUM 50 MG/5 ML VIAL. ONE; -SUCCINYLCHOLINE 200 MG/10 ML VIAL. ONE; -THROMBIN TOPICAL 20,000 UNIT SPRAY.SYRN KIT TP ONE; -ePHEDrine PF IN SALINE 50 MG/5 ML DISP.SYRIN IV ONE; -fentaNYL PF VIAL 100 MCG/2 ML VIAL IV PRN; -fentaNYL PF VIAL 100 MCG/2 ML VIAL ONE
[2018-12-19 19:51] VITALS: BP 145/71
--- NOTE | 2018-12-19 19:52 | PHYS DOC ---
Adult General Chief Complaint Chief Complaint: KNEE INJURY HPI HPI Patient is a 63 year old male who presents to the ED today complaining of left knee pain rated as mild and described as throbbing and intermittent that has been going on for 2 days. Patient denies any known injury. Denies any excessive bending or relieving factors, he states he has tried taking ibuprofen and Advil with no relief. (HAO RODRIGUEZ APRN) Review of Systems Review of Systems Constitutional: Denies fever or chills [] Musculoskeletal: Reports left knee pain Integument: Denies rash or skin lesions [] Neurologic: Denies headache, focal weakness or sensory changes [] All other systems were reviewed and found to be within normal limits, except as documented in this note. (HAO RODRIGUEZ APRN) Allergies Allergies Allergies Coded Allergies Type Severity Reaction Last Updated Verified hydrocodone Allergy Intermediate 12/19/18 Yes (ARIELA GONSALEZ MD) Physical Exam Physical Exam Constitutional: Well developed, well nourished, no acute distress, non-toxic appearance. [] Skin: Warm, dry, no erythema, no rash. [] Back: No tenderness, no CVA tenderness. [] Extremities: Left knee with no obvious deformity, old healed surgical incision noted on the anterior aspect of the knee, slight tenderness on palpation of the left medial knee, full range of motion to the left knee, negative Avni sign, negative Shelton sign, negative anterior-posterior drawer sign. +2 left pedal pulse. Cap refill less than 2 seconds the left lower extremity. Neurologic: Alert and oriented X 3, normal motor function, normal sensory function, no focal deficits noted. [] Psychologic: Affect normal, judgement normal, mood normal. [] (HAO RODRIGUEZ APRN) Current Patient Data Vital Signs Vital Signs Date Time Temp Pulse Resp B/P (MAP) Pulse Ox O2 Delivery O2 Flow Rate FiO2 12/19/18 19:51 98.2 14 145/71 (95) 95 Room Air 98.2 (ARIELA GONSALEZ MD) EKG EKG [] (HAO RODRIGUEZ APRN) Radiology/Procedures Radiology/Procedures []PROCEDURE: KNEE LEFT 4V 4 views left knee AP lateral oblique and sunrise views HISTORY: Pain There has been prior repair of the patella with pins wires and screws. The osseous structures appear grossly intact. IMPRESSION: No acute findings. Electronically signed by: Hema Rudd III, MD (12/19/2018 8:42 PM) [facility] DICTATED and SIGNED BY: HEMA RUDD III, MD DATE: 12/19/182041 (HAO RODRIGUEZ APRN) Course & Med Decision Making Course & Med Decision Making Pertinent Labs and Imaging studies reviewed. (See chart for details) This is a 63-year-old male patient presented to the ED today with left knee pain for 2 days, no known injury. Left knee x-rays interpreted by radiologist are negative for any acute findings. Discharged to home. Provided orthopedic doctor for follow-up. Ice elevation encouraged. (HAO RODRIGUEZ APRN) Course & Med Decision Making Staff Physician Addendum: I was working in the ER during the course of this patient's visit. I was available for consultation as needed, but I was not directly involved in the care of this patient. (ARIELA GONSALEZ MD) Dragon Disclaimer Dragon Disclaimer This electronic medical record was generated, in whole or in part, using a voice recognition dictation system. (HAO RODRIGUEZ APRN) Departure Departure Impression: Primary Impression: Left knee pain Disposition: HOME, SELF-CARE Condition: STABLE Referrals: AMANUEL YI MD (PCP) VIVIAN CALLES II, MD Follow up in one week Patient Instructions: Knee Pain, [id number] Additional Instructions: You were evaluated in the emergency room for knee pain, your left knee x-rays were negative for any acute findings. Please follow-up with your own orthopedic doctor or the one provided in one week. Scripts Hydrocodone/Apap 5-325 (NORCO 5-325 TABLET) 1 Each Tablet 1 TAB PO Q8HRS, #10 TAB Take with zofran to prevent nausea and vomiting Prov: HAO RODRIGUEZ APRN 12/19/18 Ondansetron (ONDANSETRON ODT) 4 Mg Tab.rapdis 1 TAB PO PRN Q6-8HRS, #16 TAB Prov: HAO RODRIGUEZ APRN 12/19/18 Problem Qualifiers Primary Impression: Left knee pain Chronicity: acute Qualified Codes: M25.562 - Pain in left knee HAO RODRIGUEZ APRN Dec 19, 2018 19:52 ARIELA GONSALEZ MD Dec 21, 2018 01:31
--- NOTE | 2018-12-19 20:45 | RAD ---
4 views left knee AP lateral oblique and sunrise views HISTORY: Pain There has been prior repair of the patella with pins wires and screws. The osseous structures appear grossly intact. IMPRESSION: No acute findings. Electronically signed by: Andrew Apodaca III, MD (12/19/2018 8:42 PM) [facility]
[2018-12-19] MEDS ORDERED: HYDR-3164 PO (20:50)
[2018-12-19] MEDS ORDERED: ONDA4TAB12 PO (20:50)
== END 2018-12-19 20:53 | disposition home or self-care (01) ==
LOC: ER 19:34
DX: M25.562 Pain in left knee (principal); Z88.5 Allergy status to narcotic agent
CPT/HCPCS: 73564; 99284-25

== ENCOUNTER → 2019-01-15 | Outpatient (CLI) | payer BC ==
[2018-12-19 19:51] VITALS: BP 145/71
[~2019-01-15] MED LIST changes: +HYDR-3164 PO; +IOHEXOL 180 MG/ML 10 ML VIAL. ONE; +ONDA4TAB12 PO; +methylPREDNISolone ACETATE 40 MG/ML VIAL. ONE; +methylPREDNISolone ACETATE 80 MG/ML VIAL. ONE
--- NOTE | 2019-01-15 10:55 | PAIN ---
DATE OF SERVICE: 01/15/2019 PROGRESS NOTE FOR PAIN CLINIC DIAGNOSES: Lumbar radiculopathy with lumbar degenerative disk disease, lumbar spinal stenosis and post-lumbar laminectomy syndrome. HISTORY OF PRESENT ILLNESS: The patient is a 63-year-old male who returns for followup status post lumbar epidural steroid injections, last seen in 12/2017. The patient had a surgery in 03/2018, which he reports did very well until the last few weeks. The pain has been returning here just about 3 weeks ago without any specific injury or accident he is aware of, just normal activity; pain in the low back and the left lower extremity, posterior gluteus, posterior thigh, lateral thigh, anterior thigh into the groin as well on the left side. The patient reports it is a 10 on a scale of 10 at its worst, 8 on average, 5 at its least and is a 5 today. The patient reports it is stabbing, aching, sharp and dull, radiating, worse with activity with walking, standing, changing positions, better with sitting or lying down, does not disturb her from sleep at night. No new motor or sensory deficits, no bowel or bladder incontinence or other complaints. PHYSICAL EXAMINATION: VITAL SIGNS: The patient's blood pressure 141/88, pulse 103, respirations 18, temperature 98.9 degrees Fahrenheit, height is 5 feet 11 inches, weight is 229 pounds. GENERAL: The patient is awake, alert, oriented, appropriate. He has very pleasant demeanor. HEENT: Shows normocephalic, atraumatic. Extraocular movements are intact and symmetrical. Oral cavity: Mucous membranes moist and pink. Dentition is intact. NECK: Shows anterior throat supple without palpable lymphadenopathy noted. Swallow reflex symmetrical. CHEST: Shows normal on inspection. Breath sounds clear to auscultation bilaterally. HEART: Shows S1, S2 clear. No murmurs auscultated. ABDOMEN: Soft, nontender, nondistended. No palpable organomegaly is noted. No rebound or guarding demonstrated. BACK: Shows spine grossly in the midline. Normal appearing thoracic kyphosis and some slight flattening of lumbar lordotic curvature with well-healed surgical scar noted. Lumbar paraspinous muscle shows symmetrical on palpation shows some moderate tenderness diffusely throughout the upper, middle and lower distribution of paraspinous muscles, but only diffusely without radiation, without asymmetry, without trigger points. The patient has good rotational motion of lumbar spine, both laterally as well as extension and flexion without difficulty. EXTREMITIES: Lower extremities show deep tendon reflexes 2+ in the patellar, 1+ tendo-calcaneus tendons. Motor exam is approximately 4 on a scale 5 on the left and 5/5 on the right with dorsiflexion and extension. Peripheral pulses are 1+ posterior tibia. No peripheral edema is noted in bilateral lower extremities. Options were discussed with the patient. The patient's old chart was reviewed as his current medication regimen updated. Current review of systems updated today as well. We will proceed with a lumbar epidural steroid injection today as a first in this series. Risks were again discussed including, but not limited to bleeding, infection, possibility of epidural hematoma, subsequent neurological compromise, dural puncture, headaches, spinal cord and/or nerve damage, side effects of steroid medication and poor results regarding pain control. The patient understands and wished to proceed. The patient will return to clinic in approximately 2 weeks for followup. He was counseled as to return appointment, activity level and side effects to be aware of. DIAGNOSIS: Lumbar radiculopathy with lumbar degenerative disk disease, lumbar spinal stenosis and post-laminectomy syndrome. PROCEDURE: Lumbar epidural steroid injection, translaminar approach L4-L5 level using C-arm fluoroscopic guidance under sterile prep and drape using local anesthetic. MEDICATION INJECTED: A total of 120 mg Depo-Medrol plus 10 mL of preservative-free normal saline and 2 mL of contrast. CONDITION AT DISCHARGE: Stable. The patient tolerated the procedure well, had no complications. DAVIDSON BURR MD DR: TAMARA/skylar JOB#: [id number] / [id number]
== END ==
LOC: PNCL 08:35
PROVIDERS: ATTEND Anesthesiology
DX: M51.16 Intervertebral disc disorders with radiculopathy, lumbar region (principal); M96.1 Postlaminectomy syndrome, not elsewhere classified; M48.061 Spinal stenosis, lumbar region without neurogenic claudication
CPT/HCPCS: 62323; J1030; J1040; Q9965

== ENCOUNTER → 2019-01-30 | Outpatient (CLI) | payer BC ==
--- NOTE | 2019-01-30 09:45 | PAIN ---
DATE OF SERVICE: 01/30/2019 PROGRESS NOTE FOR PAIN CLINIC DIAGNOSES: Lumbar radiculopathy with lumbar degenerative disk disease, lumbar spinal stenosis, and post-lumbar laminectomy syndrome. HISTORY OF PRESENT ILLNESS: The patient is a 63-year-old male who returns for followup status post lumbar epidural steroid injections x 1, last seen on 12/18. The patient reports about 60% improvement after the last injection. The patient reports still some significant pain in the low back and the left lower extremity. His right lower extremity is doing much better after his recent surgery, but left leg still remains persistently painful in the posterior gluteus, posterolateral thigh, lateral anterior thigh, medial thigh, and some in the posterior lower leg. The patient reports 10 on a scale of 10 at its worst, 7 on average and a 4 at its least over the past week and is a 4 today. Much better with sitting or lying down, does not awaken him from sleep at night, with walking and standing are the only time he has significant complaints of pain, it is burning and aching, tingling, shooting in the left leg as described and initially he was doing increased walking distances, doing household activities with greater ease and comfort, but now the pain is returning after about the first week and a half. PHYSICAL EXAMINATION: VITAL SIGNS: The patient's blood pressure is 129/77, pulse 96, respirations 16, temperature 98.4 degrees Fahrenheit, height is 5 feet 11 inches, and weight is 226 pounds. GENERAL: The patient is awake, alert, oriented, appropriate, very pleasant demeanor. HEENT: Head is normocephalic, atraumatic. Extraocular movements are intact and symmetrical. Oral Cavity: Mucous membranes moist and pink. Dentition is intact. NECK: Shows anterior throat supple without palpable lymphadenopathy noted. Swallow reflex symmetrical. CHEST: Shows normal on inspection. Breath sounds are clear bilaterally. HEART: Shows S1, S2 clear. No murmurs auscultated. ABDOMEN: Soft, nontender, nondistended. No palpable organomegaly is noted. No rebound or guarding demonstrated. BACK: Shows spine grossly in the midline. Normal-appearing thoracic kyphosis and lumbar lordotic curvature. Lumbar paraspinous muscle shows well-healed surgical scar in the midline. The patient's paraspinous musculature shows symmetrical on inspection, with palpation shows some moderate tenderness, but only diffusely throughout the middle and lower distribution of paraspinous muscles, somewhat worse on the left than the right, but is roughly symmetrical without evidence of atrophy or hypertrophy. The patient has good rotational motion of lumbar spine, both laterally as well as extension and flexion without significant increase in pain. EXTREMITIES: Lower extremities show deep tendon reflexes 2+ in the patellar, 1+ tendo-calcaneus tendons. Motor exam is 4 on a scale of 5 on the left with dorsiflexion and extension, 5/5 on the right. Peripheral pulses are 1+ posterior tibia. No peripheral edema is noted bilaterally. Options were discussed with the patient. The patient's old chart was reviewed and his current medication regimen updated. Current review of systems updated today as well. We will proceed with a second in the series of lumbar epidural steroid injection today with fluoroscopic guidance. Risks were again discussed including, but not limited to bleeding, infection, possibility of epidural hematoma, subsequent neurological compromise, dural puncture, headaches, spinal cord and/or nerve damage, side effects of steroid medication and poor results regarding pain control. The patient understands and wished to proceed. The patient will return to clinic in approximately 2 weeks for followup. He was counseled on return appointment, activity level and side effects to be aware of. DIAGNOSES: Lumbar radiculopathy with lumbar degenerative disk disease, lumbar spinal stenosis, and post-lumbar laminectomy syndrome. PROCEDURE: Lumbar epidural steroid injection, translaminar approach at the L4-5 level using C-arm fluoroscopic guidance under sterile prep and drape using local anesthetic. MEDICATION INJECTED: A total of 120 mg Depo-Medrol plus 10 mL of preservative-free normal saline and 2 mL of contrast. CONDITION AT DISCHARGE: Stable. The patient tolerated the procedure well, had no complications. DAVIDSON BURR MD DR: TAMARA/skylar JOB#: [id number] / [id number]
== END ==
LOC: PNCL 08:19
PROVIDERS: ATTEND Anesthesiology
DX: M51.16 Intervertebral disc disorders with radiculopathy, lumbar region (principal); M48.061 Spinal stenosis, lumbar region without neurogenic claudication; M96.1 Postlaminectomy syndrome, not elsewhere classified
CPT/HCPCS: 62323; J1030; J1040; Q9965

== ENCOUNTER → 2019-05-08 | Outpatient (CLI) | payer BC ==
[~2019-05-08] MED LIST changes: -OMEP20CA10 PO; +OMEP20CA16 PO
--- NOTE | 2019-05-08 09:36 | PAIN ---
DATE OF SERVICE: 05/08/2019 PROGRESS NOTE FOR PAIN CLINIC DIAGNOSES: Lumbar radiculopathy with lumbar degenerative disk disease, lumbar spinal stenosis, and post-lumbar laminectomy syndrome. HISTORY OF PRESENT ILLNESS: The patient is a 63-year-old male who returns for followup status post lumbar epidural steroid injections x 2, most recently seen on 01/30/2019, patient did very well with about 60-70% improvement in the low back and left lower extremity pain. The patient reports he has increased his activity with greater distance walking, doing household activities, traveling with greater ease and comfort, walking much more. The patient reports he is sleeping well at night, still does not awaken him from sleep. The pain is returning in the low back and left lower extremity, posterior gluteus, posterolateral thigh, lateral anterior thigh. The patient reports that 10 on a scale of 10 at its worst over the past week, 7 on average and a 3 at its least and is a 7 today. The patient reports it is aching and dull, radiating, shooting in the left leg, again worse with standing, walking, and weightbearing. The patient reports no new motor or sensory deficits, no new bowel or bladder incontinence. He has been doing some heat therapies and exercise, which does help to some extent to decrease the pain as well and continues to do these exercises. PHYSICAL EXAMINATION: VITAL SIGNS: The patient's blood pressure 121/74, pulse 98, respirations are 16, temperature 98.4 degrees Fahrenheit, weight is 227 pounds. GENERAL: The patient is awake, alert, oriented, appropriate, very pleasant demeanor. HEENT: Head shows normocephalic, atraumatic. Extraocular movements are intact and symmetrical. Oral cavity: Mucous membranes moist and pink. Dentition is intact. NECK: Shows anterior throat supple without palpable lymphadenopathy noted. Swallow reflex symmetrical. CHEST: Shows normal on inspection. Breath sounds are clear bilaterally. HEART: Shows S1, S2 clear. No murmurs auscultated. ABDOMEN: Soft, nontender, nondistended. No palpable organomegaly is noted. No rebound or guarding demonstrated. BACK: Shows spine grossly in the midline. Normal-appearing thoracic kyphosis and lumbar lordotic curvature. Lumbar paraspinous muscle shows symmetrical on inspection, on palpation shows some moderate tenderness diffusely bilaterally going diffusely without significant radiation. The patient has good rotational motion of lumbar spine, both laterally as well as extension and flexion without significant difficulty. Paraspinous musculature shows moderate tenderness diffusely and again well-healed surgical scar noted. EXTREMITIES: Lower extremities show deep tendon reflexes 2+ in the patellar, 1+ tendo-calcaneus tendons. Motor exam is 4 on a scale of 5 on the left and 5/5 on the right with dorsiflexion, extension, quadriceps, and hamstring flexion. Peripheral pulses are 1+. No peripheral edema is noted bilaterally. Options were discussed with the patient. The patient's old chart was reviewed as his current medication regimen updated. Current review of systems updated today as well. We will proceed with a third in the series of lumbar epidural steroid injection today with fluoroscopic guidance. Risks were again discussed including, but not limited to bleeding, infection, possibility of epidural hematoma, subsequent neurological compromise, dural puncture, headaches, spinal cord and/or nerve damage, side effects of steroid medication and poor results regarding pain control. The patient understands and wished to proceed. The patient will return to clinic in approximately 2 weeks for followup. He was counseled on return appointment, activity level and side effects to be aware of. DIAGNOSES: Lumbar radiculopathy with lumbar degenerative disk disease, lumbar spinal stenosis, and post-lumbar laminectomy syndrome. PROCEDURE: Lumbar epidural steroid injection, translaminar approach L4-L5 level using C-arm fluoroscopic guidance under sterile prep and drape using local anesthetic. MEDICATION INJECTED: A total of 120 mg Depo-Medrol plus 10 mL of preservative-free normal saline and 2 mL of contrast. CONDITION AT DISCHARGE: Stable. The patient tolerated procedure well, had no complications. DAVIDSON BURR MD DR: TAMARA/skylar JOB#: [id number] / [id number]
== END ==
LOC: PNCL 08:32
PROVIDERS: ATTEND Anesthesiology
DX: M51.16 Intervertebral disc disorders with radiculopathy, lumbar region (principal); M48.061 Spinal stenosis, lumbar region without neurogenic claudication; M96.1 Postlaminectomy syndrome, not elsewhere classified
CPT/HCPCS: 62323; J1030; J1040; Q9965

== ENCOUNTER → 2019-06-08 | Outpatient (CLI) | payer BC ==
[~2019-06-08] MED LIST changes: -IOHEXOL 180 MG/ML 10 ML VIAL. ONE; -methylPREDNISolone ACETATE 40 MG/ML VIAL. ONE; -methylPREDNISolone ACETATE 80 MG/ML VIAL. ONE
--- NOTE | 2019-06-08 10:53 | CARD ---
MR#: [id number] Date of Study: 06/08/2019 Ordering Physician: ALLIE BURR, Referring Physician: ALLIE BURR, Tech: Halima Hilario APPROVED REPORT EXAM: Two-dimensional and M-mode echocardiogram with Doppler and color Doppler. Other Information Quality : FairHR: 97bpm Technically limited study due to body habitus. INDICATION Peripheral artery disease RISK FACTORS Hyperlipidemia Diabetes 2D DIMENSIONS RVDd3.2 (2.9-3.5cm)Left Atrium(2D)3.7 (1.6-4.0cm) IVSd1.3 (0.7-1.1cm)Aortic Root(2D)3.4 (2.0-3.7cm) LVDd4.4 (3.9-5.9cm)LVOT Diameter2.1 (1.8-2.4cm) PWd1.0 (0.7-1.1cm)LVDs2.5 (2.5-4.0cm) FS (%) 44.5 %SV68.1 ml LVEF(%)76.0 (>50%) Aortic Valve AoV Peak Francisco.127.6cm/sAoV VTI23.0cm AO Peak GR.6.5mmHgLVOT Peak Francisco.120.3cm/s LVOT VTI 22.74cmAO Mean GR.4mmHg MAXIMILIANO (VMAX)2.31yo1KIR (VTI)3.29cm2 Mitral Valve MV E Wyodxzqy47.2cm/sMV A Enkjmpks119.0cm/s MV E Mean Gr.3mmHgE/A Ratio0.6 TDI E/Lateral E'9.4E/Medial E'12.8 Pulmonary Valve PV Peak Ituwnhtc07.8cm/sPV Peak Grad.4mmHg Tricuspid Valve TR P. Eqcpgaps044qy/sRAP DGVLYENI0fvDd TR Peak Gr.93siGrPDGA28miBi Pulmonary Vein S1 Bcauhpge62.3cm/sD2 Tcdjlddn22.6cm/s PVa nqwxkmma161piwb LEFT VENTRICLE The left ventricle is normal size. There is borderline concentric left ventricular hypertrophy. The l eft ventricular systolic function is normal and the ejection fraction is within normal range. The Eje ction Fraction is 60-65%. There is normal LV segmental wall motion. Transmitral Doppler flow pattern is Grade I-abnormal relaxation pattern. RIGHT VENTRICLE The right ventricle is normal size. There is normal right ventricular wall thickness. The right ventr icular systolic function is normal. ATRIA The left atrium size is normal. The right atrium size is normal. The interatrial septum is intact wit h no evidence for an atrial septal defect or patent foramen ovale as noted on 2-D or Doppler imaging. AORTIC VALVE The aortic valve is thickened but opens well. Doppler and Color Flow revealed no significant aortic r egurgitation. There is no significant aortic valvular stenosis. MITRAL VALVE The mitral valve is normal in structure and function. There is no evidence of mitral valve prolapse. The mitral valve mean gradient is 3.3 mmHg. Doppler and Color Flow revealed no mitral valve regurgita tion noted. TRICUSPID VALVE The tricuspid valve is not well visualized. Doppler and Color Flow revealed trace tricuspid regurgita tion. There is no tricuspid valve stenosis. PULMONIC VALVE The pulmonic valve is not well visualized. Doppler and Color Flow revealed no pulmonic valvular regur gitation. There is no pulmonic valvular stenosis. GREAT VESSELS The aortic root is normal in size. The ascending aorta is normal in size. The IVC is normal in size a nd collapses >50% with inspiration. PERICARDIAL EFFUSION There is no evidence of significant pericardial effusion. Critical Notification Critical Value: No <Conclusion> The left ventricular systolic function is normal and the ejection fraction is within normal range. Th e Ejection Fraction is 60-65%. There is normal LV segmental wall motion. Signed by : Adam Green, Electronically Approved : 06/08/2019 10:53:16
--- NOTE | 2019-06-08 13:23 | RAD ---
MR#: [id number] Date of Study: 06/08/2019 Ordering Physician: ALLIE BURR, Referring Physician: ALLIE BURR, Tech: Halima Reis, YULI, RVT, RTR APPROVED REPORT Patient Location: OUT-PATIENT Indications Peripheral Arterial Disease VELOCITY AND DOPPLER WAVEFORM ANALYSIS RIGHT cm/secWaveformSeverity LEFT cm/secWaveform Severity dCFA 50.9dCFA 77.4 Prof Fem Art. 47.0Prof Fem Art. 57.3 Fem Art Prox. 77.8Fem Art Prox. 82.4 Fem Art Mid. 77.8Fem Art Mid. 87.5 Fem Art Dist. 54.6Fem Art Dist. 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 69.4PTA Prox. 75.2 SIDE SEAM ENVELOPE MACHINE OPERATOR Dist. 43.0PTA Dist. 34.7 Per Art Prox. 52.1Per Art Prox. 66.2 SHAILESH Prox. 44.0ATA Prox. 67.5 DPA 60DPA 63 Findings Spectral waveforms are mostly triphasic and biphasic. Mild diffuse irregularities noted. Normal velocities. No significant stenosis identified bilaterally. Three vessel run-off bilaterally. Critical Notification Critical Value: No <Conclusion> 1. No significant LE arterial disease. Signed by : Adam Green, Electronically Approved : 06/08/2019 13:22:46
== END | disposition home or self-care (01) ==
LOC: ECHO 08:52
PROVIDERS: ATTEND Internal Medicine Cardiovascular Disease
DX: I35.8 Other nonrheumatic aortic valve disorders (principal); I51.7 Cardiomegaly; I73.9 Peripheral vascular disease, unspecified
CPT/HCPCS: 93306; 93925